=== PATIENT | female | born 1995 | race Caucasian/White ===

== ENCOUNTER 2020-10-14 20:04 | Emergency (ER) | payer SELFPAY ==
[~2020-10-14] VITALS: Ht 170.2 cm; Wt 62.3 kg
[2020-10-14] MEDS ORDERED: ONDANSETRON 4 MG/2 ML (SDV) Z0FRAN IVP STA (20:21)
[2020-10-14] MEDS ORDERED: NS IV 1000 ML 1,000 ML IV STA (20:21)
[2020-10-14] MEDS ORDERED: KETOROLAC 30 MG/ML VIAL IVP STA (20:21)
--- NOTE | 2020-10-14 20:23 | ED General ---
General Stated Complaint: LOWER RIGHT SIDE BACK PAIN Source of Information: Patient History of Present Illness Date Seen by Provider: October 14, 2020 Time Seen by Provider: 20:06 Initial Comments 25 yo female presents with pain to right flank and back for last 4-5 days but worse tonight. She has had kidney stones before and states this feels similar to that. She had a left over percocet she took yesterday for pain. she does not have a Urologist she follows with but recently saw a doctor and they are going to set her up with a Urology follow up. She denies fever/chills. She had diarrhea yesterday. She has had nausea but no vomiting. Pain with urination and right flank pain and feels the urine has been darker and had some blood. Last menstrual period 2 weeks ago and no chance of per patient since she has been celibate. Pain spikes to a 7 or 8 out of 10 at times and currently is around 5-6 out of 10. Timing/Duration: 4-5 Days Severity: Moderate Associated Systoms: No Chest Pain, No Cough, No Diaphoresis, No Fever/Chills, No Headaches, No Loss of Appetite, No Malaise; Nausea/Vomiting (nausea but no vomiting); No Rash, No Seizure, No Shortness of Air, No Syncope, No Weakness Allergies and Home Medications Allergies Coded Allergies: No Known Drug Allergies (Unverified , 10/14/20) Home Medications Ondansetron 4 Mg Tab.rapdis, 4 MG PO Q6H PRN for NAUSEA/VOMITING Prescribed by: OSEI Ho ENYART on 10/14/202108 Oxycodone HCl/Acetaminophen 1 Each Tablet, 1 EACH PO Q4H PRN for PAIN-SEVERE (8- 10) Prescribed by: OSEI Ho ENYART on 10/14/202109 Tamsulosin HCl 0.4 Mg Cap, 0.4 MG PO DAILY Prescribed by: OSEI Ho ENYART on 10/14/202108 Patient Home Medication List Home Medication List Reviewed: Yes Review of Systems Review of Systems Constitutional: No chills, No fever EENTM: no symptoms reported Respiratory: no symptoms reported Cardiovascular: no symptoms reported Gastrointestinal: see HPI Genitourinary: see HPI : No Musculoskeletal: back pain (right flank) Skin: no symptoms reported Psychiatric/Neurological: Anxiety Past Eratnxt-Cpmbzc-Kxydsk Hx Past Med/Social Hx: Reviewed Nursing Past Med/Soc Hx Past Medical History Surgeries: Yes (ureteral stent) Respiratory: No Cardiac: No Neurological: No Reproductive Disorders: No Genitourinary: Yes Kidney Stones (prior ureteral stent) Gastrointestinal: No Musculoskeletal: No Endocrine: No Psychosocial: Yes Anxiety Physical Exam Vital Signs Vital Signs - First Documented 10/14/20 20:10 Temp 36.4 Pulse 105 Resp 18 B/P (MAP) 114/75 (88) Pulse Ox 99 O2 Delivery Room Air Capillary Refill : Height, Weight, BMI Height: '" Weight: lbs. oz. 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 Norm as Tested Skin: Normal Color, Warm/Dry Progress/Results/Core Measures Suspected Sepsis SIRS Temperature: Pulse: Respiratory Rate: Laboratory Tests 10/14/20 20:30: White Blood Count 8.7 Blood Pressure / Mean: Laboratory Tests 10/14/20 20:30: Creatinine 0.56L, Platelet Count 331, Total Bilirubin 0.5 Results/Orders Lab Results Laboratory Tests Test 10/14/20 20:20 10/14/20 20:30 Range/Units Urine Color YELLOW Urine Clarity SLIGHTLY CLOUDY Urine pH 6.0 5-9 Urine Specific [place] >=1.030 1.016-1.022 Urine Protein NEGATIVE NEGATIVE Urine Glucose (UA) NEGATIVE NEGATIVE Urine Ketones 1+ H NEGATIVE Urine Nitrite NEGATIVE NEGATIVE Urine Bilirubin 1+ H NEGATIVE Urine Urobilinogen 1.0 < = 1.0 MG/DL Urine Leukocyte Esterase NEGATIVE NEGATIVE Urine RBC (Auto) TRACE-I NEGATIVE Urine RBC 10-25 H /HPF Urine WBC 2-5 /HPF Urine Squamous Epithelial Cells 10-25 H /HPF Urine Crystals PRESENT H /LPF Urine Calcium Oxalate Crystals FEW H /LPF Urine Bacteria LARGE H /HPF Urine Casts NONE /LPF Urine Mucus LARGE H /LPF Urine Culture Indicated YES White Blood Count 8.7 4.3-11.0 10^3/uL Red Blood Count 4.74 4.35-5.85 10^6/uL Hemoglobin 13.3 11.5-16.0 G/DL Hematocrit 39 35-52 % Mean Corpuscular Volume 83 80-99 FL Mean Corpuscular Hemoglobin 28 25-34 PG Mean Corpuscular Hemoglobin Concent 34 32-36 G/DL Red Cell Distribution Width 12.8 10.0-14.5 % Platelet Count 331 130-400 10^3/uL Mean Platelet Volume 10.4 7.4-10.4 FL Immature Granulocyte % (Auto) 0 % Neutrophils (%) (Auto) 56 42-75 % Lymphocytes (%) (Auto) 34 12-44 % Monocytes (%) (Auto) 8 0-12 % Eosinophils (%) (Auto) 1 0-10 % Basophils (%) (Auto) 1 0-10 % Neutrophils # (Auto) 4.9 1.8-7.8 X 10^3 Lymphocytes # (Auto) 2.9 1.0-4.0 X 10^3 Monocytes # (Auto) 0.7 0.0-1.0 X 10^3 Eosinophils # (Auto) 0.1 0.0-0.3 10^3/uL Basophils # (Auto) 0.1 0.0-0.1 10^3/uL Immature Granulocyte # (Auto) 0.0 0.0-0.1 10^3/uL Sodium Level 139 135-145 MMOL/L Potassium Level 4.2 3.6-5.0 MMOL/L Chloride Level 106 98-107 MMOL/L Carbon Dioxide Level 24 21-32 MMOL/L Anion Gap 9 5-14 MMOL/L Blood Urea Nitrogen 7 7-18 MG/DL Creatinine 0.56 L 0.60-1.30 MG/DL Estimat Glomerular Filtration Rate > 60 BUN/Creatinine Ratio 13 Glucose Level 89 70-105 MG/DL Calcium Level 9.5 8.5-10.1 MG/DL Corrected Calcium 9.2 8.5-10.1 MG/DL Total Bilirubin 0.5 0.1-1.0 MG/DL Aspartate Amino Transf (AST/SGOT) 12 5-34 U/L Alanine Aminotransferase (ALT/SGPT) 11 0-55 U/L Alkaline Phosphatase 79 40-136 U/L Total Protein 7.3 6.4-8.2 GM/DL Albumin 4.4 3.2-4.5 GM/DL My Orders Orders - OSEI COTA MD Ua Culture If Indicated (10/14/20 20:08) Urine Bedside (10/14/20 20:08) Comprehensive Metabolic Panel (10/14/20 20:21) Ed Iv/Invasive Line Start (10/14/20 20:21) Cbc With Automated Diff (10/14/20 20:21) Ct Abdomen/Pelvis Wo (10/14/20 20:21) Ns Iv 1000 Ml (Sodium Chloride 0.9%) (10/14/20 20:21) Ondansetron Injection (Zofran Injectio (10/14/20 20:21) Ketorolac Injection (Toradol Injection) (10/14/20 20:21) Urine Culture (10/14/20 20:20) Tamsulosin Capsule (Flomax Capsule) (10/14/20 20:58) Rx-Oxycodone/Apap 5-325 Mg (Rx-Percocet (10/14/20 21:00) Fentanyl Inj (Sublimaze Injection) (10/14/20 21:04) Vital Signs/I&O 10/14/20 10/14/20 20:10 21:23 Temp 36.4 Pulse 105 75 Resp 18 16 B/P (MAP) 114/75 (88) 98/56 Pulse Ox 99 98 O2 Delivery Room Air Room Air Capillary Refill : Progress Note #1: Progress Note check labs, UA to look for blood or infection. CT scan to evaluate for kidney stone or other process causing her pain. Progress Note #2: Progress Note labs stable without acute significant abnormality. UA shows blood and calcium oxalate crystals but no definite infections. Negative Nit, LE. CT shows minute non-obstructing stones on right. Pt reports she was still having severe pain despite Toradol. Will add on Fentanyl as she reports Morphine makes her sick. Flomax for renal colic. Send with take home of Percocet and scripts sent to pharmacy for pickup on Friday. Check with Urology and [facility] for continued problems/concerns. Given information for Dr. Carrero and [facility] clinic phone number. Diagnostic Imaging Diagonstic Imaging: CT Plain Films/CT/US/NM/MRI: abdomen, pelvis Comments NAME: GEOFFREY SALMON [facility] REC#: [id number] PT STATUS: REG ER : 1995 PHYSICIAN: OSEI COTA MD ADMIT DATE: 10/14/20/ER FS Draft Date of Exam:10/14/20 CT ABDOMEN/PELVIS WO PROCEDURE: CT abdomen and pelvis without contrast. TECHNIQUE: Multiple contiguous axial images were obtained through the abdomen and pelvis without the use of intravenous contrast. Auto Exposure Controls were utilized during the CT exam to meet ALARA standards for radiation dose reduction. INDICATION: Right flank pain. FINDINGS: The heart size is normal. The lung bases are clear. The liver is normal in size and without focal lesion. Gallbladder is unremarkable. There is no biliary ductal dilatation. Spleen is normal. The pancreas and adrenal glands are unremarkable. There are some minute nonobstructing right renal calculi. Left kidney is normal. Aorta is nonaneurysmal. There is no obvious obstructive uropathy. The bowel gas pattern is nonspecific. There is no free air. There is no ascites. There is no focal inflammatory change. There is no pelvic mass, adenopathy or free fluid. IMPRESSION: 1. Minute nonobstructing right renal calculi without evidence of obstructive uropathy. 2. Otherwise unremarkable noncontrast CT abdomen and pelvis. Dictated on workstation # [id number] Dict: 10/14/202045 Trans: 10/14/202051 [facility] [id number] Interpreted by: KORY OJEDA MD Electronically signed by: Departure Impression Primary Impression: Right flank pain Additional Impressions: Kidney stone on right side Renal colic on right side Disposition: 01 HOME, SELF-CARE Condition: Stable Departure-Patient Inst. Decision time for Depature: 21:05 Referrals: NO,LOCAL PHYSICIAN (PCP) Primary Care Physician JAMES CARRERO MD [facility] Patient Instructions: Kidney Stone, Adult ED, Kidney Stone Diet Add. Discharge Instructions: Stay well hydrated and drink plenty of water. Avoid carbonated and caffeinated drinks. Use the Percocet for severe pain. Take the Flomax to help relax the ureter to make it easier for kidney stones to pass. Follow up with your provider or urology for continued pain/symptoms. [facility] has medical providers you could see by calling [phone] to get established for care. Scripts Oxycodone HCl/Acetaminophen (Oxycodone-Acetaminophen 5-325) 1 Each Tablet 1 EACH PO Q4H PRN for PAIN-SEVERE (8-10) MDD 6 for 3 Days, #18 TAB 0 Refills Prov: OSEI COTA MD 10/14/20 Ondansetron (Ondansetron Odt) 4 Mg Tab.rapdis 4 MG PO Q6H PRN for NAUSEA/VOMITING for 5 Days, #20 TAB 0 Refills Prov: OSEI COTA MD 10/14/20 Tamsulosin HCl (Flomax) 0.4 Mg Cap 0.4 MG PO DAILY for renal colic for 7 Days, #7 CAP 0 Refills Prov: OSEI COTA MD 10/14/20 OSEI COTA MD October 14, 2020 20:23
[2020-10-14 20:37] LABS: COLOR,URINE YELLOW
[2020-10-14 20:38] LABS: BACTERIA,URINE LARGE /HPF; BILIRUBIN,URINE 1+ (NEGATIVE); CALCIUM OXALATE CRYSTALS,UR FEW /LPF; CLARITY,URINE SLIGHTLY CLOUDY; GLUCOSE, URINE (UA) NEGATIVE (NEGATIVE); KETONES,URINE 1+ (NEGATIVE); LEUKOCYTE ESTERASE ,URINE NEGATIVE (NEGATIVE); NITRITE,URINE NEGATIVE (NEGATIVE); PROTEIN,URINE NEGATIVE (NEGATIVE)
[2020-10-14 20:39] LABS: BASOPHILS # (AUTO) 0.1 10^3/uL (0.0-0.1); BASOPHILS % (AUTO) 1 % (0-10); EOSINOPHILS # (AUTO) 0.1 10^3/uL (0.0-0.3); EOSINOPHILS % (AUTO) 1 % (0-10); HEMATOCRIT 39 % (35-52); HEMOGLOBIN 13.3 G/DL (11.5-16.0); LYMPHOCYTES # (AUTO) 2.9 X 10^3 (1.0-4.0); LYMPHOCYTES % (AUTO) 34 % (12-44); MEAN CORPUSCULAR HEMOGLOBIN 28 PG (25-34); MEAN CORPUSCULAR HGB CONC 34 G/DL (32-36); MEAN CORPUSCULAR VOLUME 83 FL (80-99); MEAN PLATELET VOLUME 10.4 FL (7.4-10.4); MONOCYTES # (AUTO) 0.7 X 10^3 (0.0-1.0); MONOCYTES % (AUTO) 8 % (0-12); NEUTROPHILS # (AUTO) 4.9 X 10^3 (1.8-7.8); NEUTROPHILS % (AUTO) 56 % (42-75); PLATELET COUNT 331 10^3/uL (130-400); WHITE BLOOD COUNT 8.7 10^3/uL (4.3-11.0)
--- NOTE | 2020-10-14 20:53 | Diagnostic Imaging Report ---
PROCEDURE: CT abdomen and pelvis without contrast. TECHNIQUE: Multiple contiguous axial images were obtained through the abdomen and pelvis without the use of intravenous contrast. Auto Exposure Controls were utilized during the CT exam to meet ALARA standards for radiation dose reduction. INDICATION: Right flank pain. FINDINGS: The heart size is normal. The lung bases are clear. The liver is normal in size and without focal lesion. Gallbladder is unremarkable. There is no biliary ductal dilatation. Spleen is normal. The pancreas and adrenal glands are unremarkable. There are some minute nonobstructing right renal calculi. Left kidney is normal. Aorta is nonaneurysmal. There is no obvious obstructive uropathy. The bowel gas pattern is nonspecific. There is no free air. There is no ascites. There is no focal inflammatory change. There is no pelvic mass, adenopathy or free fluid. IMPRESSION: 1. Minute nonobstructing right renal calculi without evidence of obstructive uropathy. 2. Otherwise unremarkable noncontrast CT abdomen and pelvis. Dictated by: Dictated on workstation # [id number]
[2020-10-14] MEDS ORDERED: TAMSULOSIN 0.4 MG (FLOMAX) CAP PO STA (20:58)
[2020-10-14] MEDS ORDERED: morphine INJ 10 MG/ML 1ML (SYR OR VIAL) IVP STA (20:58)
[2020-10-14] MEDS ORDERED: RX-OXYCODONE/APAP 5-325 MG #4 TAB PK PO PRN (21:00)
[2020-10-14 21:03] LABS: ALANINE AMINOTRANSFERASE 11 U/L (0-55); ALBUMIN 4.4 GM/DL (3.2-4.5); ALKALINE PHOSPHATASE 79 U/L (40-136); BILIRUBIN,TOTAL 0.5 MG/DL (0.1-1.0); BUN/CREATININE RATIO 13; CALCIUM 9.5 MG/DL (8.5-10.1); CARBON DIOXIDE 24 MMOL/L (21-32); CHLORIDE 106 MMOL/L (98-107); CREATININE SERUM 0.56 MG/DL (0.60-1.30); GFR ESTIMATED > 60; GLUCOSE 89 MG/DL (70-105); POTASSIUM 4.2 MMOL/L (3.6-5.0); SODIUM 139 MMOL/L (135-145); TOTAL PROTEIN 7.3 GM/DL (6.4-8.2)
[2020-10-14] MEDS ORDERED: fentaNYL INJ 100 MCG/2 ML AMP IVP STA (21:04)
[2020-10-14] MEDS ORDERED: TMSL.4C PO (21:09)
[2020-10-14] MEDS ORDERED: ONDA4TAB11 PO (21:09)
[2020-10-14] MEDS ORDERED: OXYC1TAB11 PO (21:09)
[2020-10-14 21:23] VITALS: BP 98/56
== END 2020-10-14 21:23 | disposition home or self-care (01) ==
LOC: ER FS 20:08
DX: N20.0 Calculus of kidney (principal); Z96.0 Presence of urogenital implants
CPT/HCPCS: 36415; 74176; 80053; 81000; 84703; 85025; 87088

== ENCOUNTER 2020-11-20 19:08 | Emergency (ER) | payer SELFPAY ==
[~2020-11-20] VITALS: Ht 170.1 cm; Wt 61.0 kg
[~2020-11-20 19:08] MED LIST: ONDA4TAB11 PO; OXYC1TAB11 PO; TMSL.4C PO
[2020-11-20 20:02] LABS: CLARITY,URINE CLOUDY; COLOR,URINE YELLOW
[2020-11-20 20:03] LABS: BILIRUBIN,URINE NEGATIVE (NEGATIVE); GLUCOSE, URINE (UA) NEGATIVE (NEGATIVE); KETONES,URINE NEGATIVE (NEGATIVE); LEUKOCYTE ESTERASE ,URINE NEGATIVE (NEGATIVE); NITRITE,URINE NEGATIVE (NEGATIVE); PROTEIN,URINE NEGATIVE (NEGATIVE)
[2020-11-20 20:04] LABS: BACTERIA,URINE MODERATE /HPF
[2020-11-20] MEDS ORDERED: ONDANSETRON 4 MG (ZOFRAN) ORAL DISSOLVE TAB PO STA (20:20)
[2020-11-20] MEDS ORDERED: morphine INJ 10 MG/ML 1ML (SYR OR VIAL) IM STA (20:20)
[2020-11-20] MEDS ORDERED: RX-ONDANSETRON 4 MG ODT (ZOFRAN) PPK #4 PO PRN (20:30)
[2020-11-20] MEDS ORDERED: RX-OXYCODONE/APAP 5-325 MG #4 TAB PK PO PRN (20:30)
--- NOTE | 2020-11-20 21:10 | ED Back Pain ---
General Chief Complaint: Back Problems Stated Complaint: BACK/STOMACH PAIN | PAIN WHEN URINATING Nursing Triage Note: Patient states that she has a history of kidney stones. Patient started having right sided flank pain at approximately 15:00 today. Patient states she is pretty sure she has a kidney stone. Source of Information: Patient, Old Records History of Present Illness Date Seen by Provider: Nov 20, 2020 Time Seen by Provider: 19:18 Initial Comments 25 yo female presenting with recurrent complaint of right flank pain. she has history of renal colic and kidney stones. She states this pain came on suddenly this afternoon and feels similar to when she has had a kidney stone. She denies any burning or pain with urination. There is currently no blood in her urine. She has been seen here in the ED at the end of September for similar symptoms and at that time a CT scan showed some small stones in the right kidney. She had followed up with the clinic and establish with [facility] but has not seen urology. She states she has been avoiding pop and just trying to drink water. She denies anything different today to trigger the pain. There is been no trauma. She tried taking Tylenol for the pain without any significant provement. Timing/Duration: 4-6 Hours Severity: Severe Pain/Injury Location: Back (Right flank) Radiation: Other (Right flank) Method of Injury: Other (No injury but feels similar to when she has had kidney stones) Associated Symptoms: No muscle spasms, No fever, No weakness, No numbness in legs/feet, No tingling in legs/feet, No sensory/motor loss, No loss of bladder control, No loss of bowel control Allergies and Home Medications Allergies Coded Allergies: No Known Drug Allergies (Unverified , 10/14/20) Home Medications Ondansetron 4 Mg Tab.rapdis, 4 MG PO Q6H PRN for NAUSEA/VOMITING Prescribed by: OSEI REEDYART on 11/20/202116 Oxycodone HCl/Acetaminophen 1 Each Tablet, 1 EACH PO Q4H PRN for PAIN-SEVERE (8- 10) Prescribed by: OSEI العراقيRT on 11/20/202117 Tamsulosin HCl 0.4 Mg Cap, 0.4 MG PO DAILY Prescribed by: OSEI العراقيRT on 10/14/202108 Patient Home Medication List Home Medication List Reviewed: Yes Review of Systems Constitutional: No chills, No dizziness, No fever EENTM: no symptoms reported Respiratory: no symptoms reported Cardiovascular: no symptoms reported Gastrointestinal: see HPI Genitourinary: see HPI Musculoskeletal: see HPI Skin: no symptoms reported Psychiatric/Neurological: Anxiety Past Txzloyw-Pixtwf-Vaolrf Hx Patient Social History Tobacco Use?: No Smoking Status: Former Smoker Pt feels they are or have been: No Seasonal Allergies Seasonal Allergies: No Past Medical History Surgeries: Yes (ureteral stent) Respiratory: No Cardiac: No Neurological: No Reproductive Disorders: No Genitourinary: Yes Kidney Stones Gastrointestinal: No Musculoskeletal: No Endocrine: No HEENT: No Cancer: No Psychosocial: Yes Anxiety Integumentary: No Blood Disorders: No Physical Exam Vital Signs Vital Signs - First Documented 11/20/20 19:13 Temp 36.6 Pulse 99 Resp 16 B/P (MAP) 114/67 (83) Pulse Ox 100 O2 Delivery Room Air Capillary Refill : Less Than 3 Seconds Height, Weight, BMI Height: '" Weight: lbs. oz. kg; 21.00 BMI Method: General Appearance: WD/WN, Anxious, Moderate Distress HEENT: PERRL/EOMI, Pharynx Normal Neck: Full Range of Motion, Normal Inspection, Non Tender, Supple Cardiovascular: Regular Rate, Rhythm, Normal Peripheral Pulses Respiratory: Chest Non Tender, Lungs Clear, Normal Breath Sounds Gastrointestinal: Normal Bowel Sounds, No Pulsatile Mass, Soft; No Distended, No Guarding, No Rebound; Tenderness (Right flank wrapping around from posterior) Back: No CVA Tenderness, Other (Pain to the posterior right flank wrapping around to the front) Extremity: Normal Capillary Refill, Normal Inspection, No Pedal Edema Neurologic/Psychiatric: Alert, Oriented x3 Skin: Normal Color, Warm/Dry Progress/Results/Core Measures Results/Orders Lab Results Laboratory Tests Test 11/20/20 19:18 Range/Units Urine Color YELLOW Urine Clarity CLOUDY Urine pH 7.0 5-9 Urine Specific [place] 1.020 1.016-1.022 Urine Protein NEGATIVE NEGATIVE Urine Glucose (UA) NEGATIVE NEGATIVE Urine Ketones NEGATIVE NEGATIVE Urine Nitrite NEGATIVE NEGATIVE Urine Bilirubin NEGATIVE NEGATIVE Urine Urobilinogen 0.2 < = 1.0 MG/DL Urine Leukocyte Esterase NEGATIVE NEGATIVE Urine RBC (Auto) NEGATIVE NEGATIVE Urine RBC NONE /HPF Urine WBC 2-5 /HPF Urine Squamous Epithelial Cells 10-25 H /HPF Urine Crystals NONE /LPF Urine Bacteria MODERATE H /HPF Urine Casts NONE /LPF Urine Mucus MODERATE H /LPF Urine Culture Indicated NO My Orders Orders - OSEI COTA MD Ua Culture If Indicated (11/20/20 19:14) Urine Bedside (11/20/20 19:14) Morphine Injection (Morphine Injection (11/20/20 20:20) Ondansetron Oral Dissolve Tab (Zofran (11/20/20 20:20) Rx-Oxycodone/Apap 5-325 Mg (Rx-Percocet (11/20/20 20:30) Rx-Ondansetron Po (Rx-Zofran Po) (11/20/20 20:30) Medications Given in ED Current Medications Medications Dose Ordered Sig/Dougie Route Start Time Stop Time Status Last Admin Dose Admin Ondansetron HCl 4 mg Q6H PRN PO 11/20/20 20:30 11/20/20 21:33 DC 11/20/20 21:33 4 MG Oxycodone/ Acetaminophen 1 ea Q6H PRN PO 11/20/20 20:30 11/20/20 21:33 DC 11/20/20 21:33 1 EA Vital Signs/I&O 11/20/20 11/20/20 19:13 21:31 Temp 36.6 Pulse 99 87 Resp 16 18 B/P (MAP) 114/67 (83) 109/67 Pulse Ox 100 100 O2 Delivery Room Air Room Air Blood Pressure Mean: 83 Progress Progress Note : Progress Note Urine bedside test was negative. Urinalysis showed some bacteria but no leukocyte esterase or nitrates. No blood in urine. With her recent CT scan and now having recurrent pain will treat presumptively for kidney stone but not repeat the CT scan better through the radiation evaluation. If her symptoms are not improving or she has worsening problems then she may still need repeat imaging however for now we will try treating her pain and arranging follow-up with PCP and urology. Departure Impression Primary Impression: Right flank pain Additional Impression: Renal colic on right side Disposition: HOME, SELF-CARE Condition: Stable Departure-Patient Inst. Decision time for Depature: 21:15 Referrals: SARAHI BEATTY APRN (PCP/Family) Primary Care Physician Patient Instructions: Flank Pain ED, Kidney Stone Diet, Kidney Stone, Adult ED Add. Discharge Instructions: Strain your urine to help try and catch a stone. Follow up with clinic for your pain and to get appointment with Urology for recurrent kidney stones and flank pain Take the pain medicine to help with flank pain. Drink plenty of water to stay hydrated. All discharge instructions reviewed with patient and/or family. Voiced understanding. Scripts Oxycodone HCl/Acetaminophen (Oxycodone-Acetaminophen 5-325) 1 Each Tablet 1 EACH PO Q4H PRN for PAIN-SEVERE (8-10) MDD 6 for 3 Days, #18 TAB 0 Refills Prov: OSEI COTA MD 11/20/20 Ondansetron (Ondansetron Odt) 4 Mg Tab.rapdis 4 MG PO Q6H PRN for NAUSEA/VOMITING for 5 Days, #20 TAB 0 Refills Prov: OSEI COTA MD 11/20/20 OSEI COTA MD Nov 20, 2020 21:10
[2020-11-20] MEDS ORDERED: ONDA4TAB11 PO (21:17)
[2020-11-20] MEDS ORDERED: OXYC1TAB11 PO (21:17)
[2020-11-20 21:31] VITALS: BP 109/67
== END 2020-11-20 21:33 | disposition home or self-care (01) ==
LOC: EDUNIT# 19:08 → ER FS 19:10
DX: N23 Unspecified renal colic (principal); Z87.891 Personal history of nicotine dependence
CPT/HCPCS: 81000; 84703; 99284

== ENCOUNTER 2020-12-10 10:29 | Emergency (ER) | payer SELFPAY ==
[~2020-12-10] VITALS: Ht 172.7 cm; Wt 60.6 kg
[2020-12-10 10:33] VITALS: BP 104/59
--- NOTE | 2020-12-10 10:37 | ED EENT ---
History of Present Illness General Chief Complaint: Fever-Adult/Adol Stated Complaint: FEVER | PAIN FROM TONSIL REMOVAL | COUGH History of Present Illness Date Seen by Provider: Dec 10, 2020 Time Seen by Provider: 10:37 Initial Comments 25-year-old female presents with tonsil pain. Patient had her tonsils removed on 12/06/2020. Patient reports she was prescribed 7.5 /325 hydrocodone's and was "overusing them. Patient called her ENT on Friday and then what sounds like again today because of pain. Patient reports that she just took her last pain medication and she is here for pain management. Patient reports a fever right prior to arrival at home however no fever here. Patient has a mild occasional cough. No other systemic complaints Allergies and Home Medications Allergies Coded Allergies: No Known Drug Allergies (Unverified , 10/14/20) Home Medications Ondansetron 4 Mg Tab.rapdis, 4 MG PO Q6H PRN for NAUSEA/VOMITING Prescribed by: OSEI COTA on 11/20/202116 Oxycodone HCl/Acetaminophen 1 Each Tablet, 1 EACH PO Q4H PRN for PAIN-SEVERE (8- 10) Prescribed by: OSEI COTA on 11/20/202117 Tamsulosin HCl 0.4 Mg Cap, 0.4 MG PO DAILY Prescribed by: OSEI COTA on 10/14/202108 Patient Home Medication List Home Medication List Reviewed: Yes Review of Systems Review of Systems Constitutional: see HPI Eyes: No Symptoms Reported Ears: No Symptoms Reported Nose: no symptoms reported Mouth: see HPI Throat: see HPI Respiratory: cough (Mild occasional) Cardiovascular: no symptoms reported Neurological: No Symptoms Reported Hematologic/Lymphatic: No Symptoms Reported Immunological/Allergic: no symptoms reported Past Seiptpd-Qimrqz-Fwlnon Hx Seasonal Allergies Seasonal Allergies: No Past Medical History Surgeries: Yes (ureteral stent) Respiratory: No Cardiac: No Neurological: No Reproductive Disorders: No Genitourinary: Yes Kidney Stones Gastrointestinal: No Musculoskeletal: No Endocrine: No HEENT: No Cancer: No Psychosocial: Yes Anxiety Integumentary: No Blood Disorders: No Physical Exam Height, Weight, BMI Height: '" Weight: lbs. oz. kg; 21.00 BMI Method: General Appearance: WD/WN, no apparent distress Eyes: bilateral eye normal inspection Mouth/Throat: other (Good he healing eschar on bilateral tonsils with no signs of infection or other acute etiology) Cardiovascular: normal peripheral pulses, regular rate, rhythm Respiratory: lungs clear, normal breath sounds Gastrointestinal: non tender, soft Neurologic/Psychiatric: alert, normal mood/affect, oriented x 3 Skin: normal color, warm/dry Progress/Results/Core Measures Results/Orders My Orders Orders - QUENTIN COOPERR Rafaela DO Lidocaine 2% Viscous 15 Ml (Xylocaine Vi (12/10/20 10:45) Antacid Suspension (Mylanta Suspension (12/10/20 10:45) Medications Given in ED Current Medications Medications Dose Ordered Sig/Dougie Route Start Time Stop Time Status Last Admin Dose Admin Al Hydrox/Mg Hydrox/Simethicone 30 ml ONCE ONCE PO 12/10/20 10:45 12/10/20 10:46 DC 12/10/20 10:46 30 ML Lidocaine HCl 15 ml ONCE ONCE PO 12/10/20 10:45 12/10/20 10:46 DC 12/10/20 10:46 15 ML Progress Progress Note : Progress Note Patient's presentation is very concerning for opioid abuse. I did review her [facility] she has had multiple opioid refills recently. Patient received 40- 7.5 325 hydrocodone's on 12/06/2020. Patient will be given 5 hydrocodone 09/18/2024's along with viscous lidocaine. Patient was given viscous lidocaine here in the ER. She will need to follow-up with her primary care provider or ENT for any further pain management. Departure Impression Primary Impression: Post-tonsillectomy pain Disposition: 01 HOME, SELF-CARE Condition: Stable Departure-Patient Inst. Referrals: SARAHI BEATTY APRN (PCP/Family) Primary Care Physician Patient Instructions: Managing Pain After Surgery Add. Discharge Instructions: Follow-up with your primary care provider or ENT that performed the surgery tomorrow You may also gargle/swish and swallow with Maalox to help coat the tonsil bed for pain relief All discharge instructions reviewed with patient and/or family. Voiced understanding. Scripts Hydrocodone/Acetaminophen (Hydrocodone-Acetamin 5-325 mg) 1 Each Tablet 1 TAB PO Q8H PRN for PAIN-MODERATE (5-7), #5 TAB Prov: HALEY COOPER DO 12/10/20 Lidocaine HCl (Lidocaine HCl Viscous) 15 Ml Solution 15 ML MM Q8H for Pain, #120 EA Rinse and spit Prov: HALEY COOPER DO 12/10/20 HALEY COOPER DO Dec 10, 2020 10:37
[2020-12-10] MEDS ORDERED: LIDOCAINE 2% VISCOUS 15 ML UDC PO ONE (10:45)
[2020-12-10] MEDS ORDERED: ANTACID SUSP 30 ML UDC (MYLANTA) PO ONE (10:45)
[2020-12-10] MEDS ORDERED: LIDO20SO23 MM (11:01)
[2020-12-10] MEDS ORDERED: ACHD5005 PO (11:01)
== END 2020-12-10 11:10 | disposition home or self-care (01) ==
LOC: EDUNIT# 10:29 → ER FS 10:32
DX: G89.18 Other acute postprocedural pain (principal); Z90.89 Acquired absence of other organs
CPT/HCPCS: 99283

== ENCOUNTER 2021-02-26 16:54 | Emergency (ER) | payer SELFPAY ==
[~2021-02-26] VITALS: Ht 170 cm; Wt 60.0 kg
[~2021-02-26 16:54] MED LIST changes: +ACHD5005 PO; +LIDO20SO23 MM
[2021-02-26 17:14] LABS: CLARITY,URINE CLOUDY; COLOR,URINE YELLOW; GLUCOSE, URINE (UA) NEGATIVE (NEGATIVE); KETONES,URINE TRACE (NEGATIVE); LEUKOCYTE ESTERASE ,URINE TRACE (NEGATIVE); NITRITE,URINE NEGATIVE (NEGATIVE); PH,URINE 6.5 (5-9); PROTEIN,URINE TRACE (NEGATIVE)
--- NOTE | 2021-02-26 17:17 | ED GU-Female ---
General Chief Complaint: - Reproductive Stated Complaint: RT LOWER BACK PAIN Source: patient, old records History of Present Illness Date Seen by Provider: Feb 26, 2021 Time Seen by Provider: 17:00 Initial Comments 25-year-old female presenting with complaint of recurrent right flank pain. She states that this feels like her usual kidney stone pain. She had been seen last week on Friday and again on Friday for pain. Her prescription she got on February 23 was lost and she has not had any medicine since Friday. She has some nausea but no vomiting. She stated that they had checked her urine and lab and did not see any evidence of infection last week. She does have urinary frequency and urgency but denies any pain with urination or blood in her urine that she can see. She is waiting on a call from Dr. Carrero's office to be referred there from [facility]. Since she was continuing to have pain and the clinic would not replace her medicine or refill meds since just given script Friday she came to the ED for pain control. Timing/Duration: intermittent (since last Friday) Severity/Quality: severe, sharp, throbbing Location: right flank Radiation: right flank Prior Genitourinary Problems: similar symptoms (with kidney stones) Associated Symptoms: No abdominal pain, No diaphoresis, No dysuria, No fever/chills, No loss of bladder control; lower back pain; No lumps, No mass; nausea/vomiting (nausea but no vomiting); No nocturia, No swelling, No syncope; urinary frequency Allergies and Home Medications Allergies Coded Allergies: No Known Drug Allergies (Unverified , 10/14/20) Patient Home Medication List Home Medication List Reviewed: Yes Ciprofloxacin HCl (Ciprofloxacin HCl) 500 Mg Tablet, 500 MG PO BID Prescribed by: OSEI COTA on 02/26/21 1808 Hydrocodone/Acetaminophen (Hydrocodone-Acetamin 5-325 mg) 1 Each Tablet, 1 TAB PO Q8H PRN for PAIN-MODERATE (5-7) Prescribed by: HALEY COOPER on 12/10/20 1102 Hydrocodone/Acetaminophen (Hydrocodone-Acetamin 7.5-325) 1 Each Tablet, 1 EACH PO Q6H PRN for PAIN-SEVERE (8-10) Prescribed by: OSEI COTA on 02/26/21 1745 Lidocaine HCl (Lidocaine HCl Viscous) 15 Ml Solution, 15 ML MM Q8H Prescribed by: HALEY COOPER on 12/10/20 110 Ondansetron (Ondansetron Odt) 4 Mg Tab.rapdis, 4 MG PO Q6H PRN for NAUSEA/VOMITING Prescribed by: OSEI COTA on 11/20/202116 Ondansetron (Ondansetron Odt) 4 Mg Tab.rapdis, 4 MG PO Q6H PRN for NAUSEA/VOMITING Prescribed by: OSEI COTA on 02/26/21 174 Oxycodone HCl/Acetaminophen (Oxycodone-Acetaminophen 5-325) 1 Each Tablet, 1 EACH PO Q4H PRN for PAIN-SEVERE (8-10) Prescribed by: OSEI COTA on 11/20/202117 Tamsulosin HCl (Flomax) 0.4 Mg Cap, 0.4 MG PO DAILY Prescribed by: OSEI COTA on 10/14/202108 Review of Systems Review of Systems Constitutional: No chills, No fever EENTM: no symptoms reported Respiratory: no symptoms reported Cardiovascular: no symptoms reported Gastrointestinal: see HPI Genitourinary: see HPI Musculoskeletal: no symptoms reported Skin: no symptoms reported Psychiatric/Neurological: No Symptoms Reported Past Hmjggba-Azibdd-Vpdwxv Hx Seasonal Allergies Seasonal Allergies: No Past Medical History Surgeries: Yes (ureteral stent) Respiratory: No Cardiac: No Neurological: No Reproductive Disorders: No Genitourinary: Yes Kidney Stones Gastrointestinal: No Musculoskeletal: No Endocrine: No HEENT: No Cancer: No Psychosocial: Yes Anxiety Integumentary: No Blood Disorders: No Physical Exam Vital Signs Vital Signs - First Documented 02/26/21 17:00 Temp 36.5 Pulse 108 Resp 20 B/P (MAP) 102/78 (86) Pulse Ox 98 O2 Delivery Room Air Capillary Refill : Height, Weight, BMI Height: '" Weight: lbs. oz. kg; 20.00 BMI Method: General Appearance: WD/WN, no apparent distress HEENT: PERRL/EOMI, pharynx normal Neck: non-tender, full range of motion, supple, normal inspection Cardiovascular: normal peripheral pulses, regular rate, rhythm Respiratory: chest non-tender, lungs clear, normal breath sounds Gastrointestinal: normal bowel sounds, non tender, soft, no pulsatile mass Rectal: deferred Back: no CVA tenderness, other (tender to palpation along right posterior flank) Extremities: normal range of motion, non-tender, normal capillary refill Neurologic/Psychiatric: acetylene cutter II-XII nml as tested, alert, oriented x 3 Skin: normal color, warm/dry; No ecchymosis, No rash Progress/Results/Core Measures Suspected Sepsis SIRS Temperature: Pulse: Respiratory Rate: Blood Pressure / Mean: Results/Orders Lab Results Laboratory Tests Test 02/26/21 17:05 Range/Units Urine Color YELLOW Urine Clarity CLOUDY Urine pH 6.5 5-9 Urine Specific [place] 1.025 H 1.016-1.022 Urine Protein TRACE H NEGATIVE Urine Glucose (UA) NEGATIVE NEGATIVE Urine Ketones TRACE H NEGATIVE Urine Nitrite NEGATIVE NEGATIVE Urine Bilirubin 1+ H NEGATIVE Urine Urobilinogen 0.2 < = 1.0 MG/DL Urine Leukocyte Esterase TRACE H NEGATIVE Urine RBC (Auto) TRACE-I H NEGATIVE Urine RBC 2-5 H /HPF Urine WBC 25-50 H /HPF Urine Squamous Epithelial Cells >50 H /HPF Urine Crystals NONE /LPF Urine Bacteria LARGE H /HPF Urine Casts NONE /LPF Urine Mucus MODERATE H /LPF Urine Culture Indicated YES Urine Opiates Screen POSITIVE H NEGATIVE Urine Oxycodone Screen NEGATIVE NEGATIVE Urine Methadone Screen NEGATIVE NEGATIVE Urine Propoxyphene Screen NEGATIVE NEGATIVE Urine Barbiturates Screen NEGATIVE NEGATIVE Ur Tricyclic Antidepressants Screen NEGATIVE NEGATIVE Urine Phencyclidine Screen NEGATIVE NEGATIVE Urine Amphetamines Screen NEGATIVE NEGATIVE Urine Methamphetamines Screen NEGATIVE NEGATIVE Urine Benzodiazepines Screen NEGATIVE NEGATIVE Urine Cocaine Screen NEGATIVE NEGATIVE Urine Cannabinoids Screen POSITIVE H NEGATIVE My Orders Orders - OSEI COTA MD Urine Bedside (02/26/21 17:01) Ua Culture If Indicated (02/26/21 17:01) Morphine Injection (Morphine Injection (02/26/21 17:28) Ondansetron Oral Dissolve Tab (Zofran (02/26/21 17:28) Drug Screen Stat (Urine) (02/26/21 17:29) Urine Culture (02/26/21 17:05) Vital Signs/I&O 02/26/21 02/26/21 17:00 18:15 Temp 36.5 36.5 Pulse 108 108 Resp 20 20 B/P (MAP) 102/78 (86) 102/78 Pulse Ox 98 98 O2 Delivery Room Air Room Air Capillary Refill : Progress Note #1: Progress Note Pt states she did not want a CT scan or imaging as she would rather wait until she sees Urologist. She felt she needed something for pain and nausea. Will check urine and UDS. Since she just had prescription for narcotics on Friday and then again Friday will try prescribing a different medicine and have her call Dr. Carrero's office to see when she can be seen. Progress Note #2: Progress Note Pt did have bacteria on UA so a culture is being done. She also had several Epithelial cells in place as well so may be contaminant. Treat with Cipro as she will not be taking the Zofran routinely so they should not interact. Script for Hydrocodone at 7.5 mg strength every 6 hours prn severe pain. Follow up with Urology and [facility] for further refills of pain medicines Departure Impression Primary Impression: Right flank pain Additional Impressions: History of kidney stones Cystitis with hematuria Disposition: HOME, SELF-CARE Condition: Stable Departure-Patient Inst. Decision time for Depature: 18:07 Referrals: SAMANTHA BEATTY APRN (PCP) Primary Care Physician JAMES CARRERO MD Patient Instructions: Flank Pain ED, Kidney Stone Diet, Kidney Stone, Adult ED Add. Discharge Instructions: Follow up with Urology and call Dr. Carrero's office to see about when they can see you. Stay well hydrated and drink plenty of water. Use the nausea medicine and pain medicine to help control your symptoms so they are tolerable. Future pain medicine prescriptions will need to come from Urology or [facility] clinic All discharge instructions reviewed with patient and/or family. Voiced understanding. Scripts Ciprofloxacin HCl (Ciprofloxacin HCl) 500 Mg Tablet 500 MG PO BID for UTI for 7 Days, #14 TAB 0 Refills Prov: OSEI COTA MD 02/26/21 Ondansetron (Ondansetron Odt) 4 Mg Tab.rapdis 4 MG PO Q6H PRN for NAUSEA/VOMITING for 5 Days, #20 TAB 0 Refills Prov: OSEI COTA MD 02/26/21 Hydrocodone/Acetaminophen (Hydrocodone-Acetamin 7.5-325) 1 Each Tablet 1 EACH PO Q6H PRN for PAIN-SEVERE (8-10) for 5 Days, #20 TAB 0 Refills Prov: OSEI COTA MD 02/26/21 OSEI COTA MD Feb 26, 2021 17:17
[2021-02-26] MEDS ORDERED: morphine INJ 10 MG/ML 1ML (SYR OR VIAL) IM STA (17:28)
[2021-02-26] MEDS ORDERED: ONDANSETRON 4 MG (ZOFRAN) ORAL DISSOLVE TAB PO STA (17:28)
[2021-02-26] MEDS ORDERED: HYDR-3817 PO (17:40)
[2021-02-26] MEDS ORDERED: ONDA4TAB11 PO (17:40)
[2021-02-26 17:51] LABS: BACTERIA,URINE LARGE /HPF; BILIRUBIN,URINE 1+ (NEGATIVE); WBC,URINE 25-50 /HPF
[2021-02-26 17:53] LABS: SQUAMOUS EPITHELIAL CELL,UR >50 /HPF
[2021-02-26 17:58] LABS: AMPHETAMINE SCREEN, URINE NEGATIVE (NEGATIVE); BARBITURATE SCREEN URINE NEGATIVE (NEGATIVE); BENZODIAZEPINES SCREEN URINE NEGATIVE (NEGATIVE); CANNABINOID SCREEN, URINE POSITIVE (NEGATIVE); COCAINE SCREEN URINE NEGATIVE (NEGATIVE); METHADONE STAT NEGATIVE (NEGATIVE); METHAMPHETAMINE SCREEN URINE S NEGATIVE (NEGATIVE); OPIATE SCREEN URINE POSITIVE (NEGATIVE); OXYCODONE STAT NEGATIVE (NEGATIVE); PROPOXYPHENE STAT NEGATIVE (NEGATIVE); TRICYCLIC ANTIDEPRESSANTS SCRE NEGATIVE (NEGATIVE)
[2021-02-26] MEDS ORDERED: CIPR500T5 PO (18:08)
[2021-02-26 18:15] VITALS: BP 102/78
== END 2021-02-26 18:16 | disposition home or self-care (01) ==
LOC: EDUNIT# 16:54 → ER FS 16:55
DX: N30.91 Cystitis, unspecified with hematuria (principal)
CPT/HCPCS: 80306; 81000; 87088; 99284

== ENCOUNTER 2021-03-05 15:56 | Outpatient (RCR) | payer MEDICAID ==
[2021-03-05 16:51] LABS: POTASSIUM 4.2 MMOL/L (3.6-5.0)
[2021-03-05 16:52] LABS: CALCIUM 9.2 MG/DL (8.5-10.1)
[2021-03-05 16:56] LABS: CREATININE SERUM 0.7 MG/DL (0.60-1.30); PHOSPHORUS 4.2 MG/DL (2.3-4.7)
[2021-03-05 16:59] LABS: URIC ACID 3.1 MG/DL (2.6-7.2)
== END 2021-05-18 | disposition home or self-care (01) ==
LOC: LAB 15:56 → EDSTATUS 16:49
PROVIDERS: ATTEND Urology
DX: N20.0 Calculus of kidney (principal)
CPT/HCPCS: 36415; 80048; 83970; 84100; 84550

== ENCOUNTER → 2021-03-05 | Outpatient (CLI) | payer SELFPAY ==
[~2021-03-05] MED LIST changes: +CIPR500T5 PO; +HYDR-3817 PO
--- NOTE | 2021-03-05 15:03 | Diagnostic Imaging Report ---
INDICATION: Right kidney stone A single view of the abdomen shows a normal bowel gas pattern. There is a punctate calcification projected over the lower pole of the right kidney which corresponds with the CT from 10/14/2020. No ureteral stones are evident. There is no bony abnormality. IMPRESSION: Small right renal calculus. Dictated by: Dictated on workstation # [id number]
== END ==
LOC: RAD 14:02
PROVIDERS: ATTEND Urology
DX: N20.0 Calculus of kidney (principal)
CPT/HCPCS: 74018

== ENCOUNTER 2022-03-03 18:15 | Emergency (ER) | payer MEDICAID ==
[~2022-03-03] VITALS: Ht 170.1 cm; Wt 63.6 kg
--- NOTE | 2022-03-03 18:34 | ED Back Pain ---
General Chief Complaint: Back Problems Stated Complaint: ABD/BACK PAIN History of Present Illness Date Seen by Provider: Mar 03, 2022 Time Seen by Provider: 18:29 Initial Comments 26-year-old female with complaints of right-sided flank pain. Is been going on for a week got really bad today. She is been taking ketorolac for this. But that is not helping as much anymore. She does have a history of kidney stones and she thinks this is it. Has not noticed any blood in the urine. Has had nausea. No fever or chills. Allergies and Home Medications Allergies Coded Allergies: No Known Drug Allergies (Unverified , 10/14/20) Patient Home Medication List Home Medication List Reviewed: Yes Ciprofloxacin HCl (Ciprofloxacin HCl) 500 Mg Tablet, 500 MG PO BID Prescribed by: OSEI COTA on 02/26/21 180 Hydrocodone/Acetaminophen (Hydrocodone-Acetamin 5-325 mg) 1 Each Tablet, 1 TAB PO Q8H PRN for PAIN-MODERATE (5-7) Prescribed by: HALEY COOPER on 12/10/20 110 Hydrocodone/Acetaminophen (Hydrocodone-Acetamin 7.5-325) 1 Each Tablet, 1 EACH PO Q6H PRN for PAIN-SEVERE (8-10) Prescribed by: OSEI COTA on 02/26/21 174 Lidocaine HCl (Lidocaine HCl Viscous) 15 Ml Solution, 15 ML MM Q8H Prescribed by: HALEY COOPER on 12/10/20 110 Ondansetron (Ondansetron Odt) 4 Mg Tab.rapdis, 4 MG PO Q6H PRN for NAUSEA/VOMITING Prescribed by: OSEI COTA on 11/20/202116 Ondansetron (Ondansetron Odt) 4 Mg Tab.rapdis, 4 MG PO Q6H PRN for NAUSEA/VOMITING Prescribed by: OSEI COTA on 02/26/21 174 Oxycodone HCl/Acetaminophen (Oxycodone-Acetaminophen 5-325) 1 Each Tablet, 1 EACH PO Q4H PRN for PAIN-SEVERE (8-10) Prescribed by: OSEI COTA on 11/20/20 211 Sulfamethoxazole/Trimethoprim (Sulfamethoxazole-Tmp Ss Tablet) 400 Mg-80 Mg Tablet, 1 EACH PO Q12H Prescribed by: Claude Mason on 03/03/221939 Tamsulosin HCl (Flomax) 0.4 Mg Cap, 0.4 MG PO DAILY Prescribed by: OSEI COTA on 10/14/202108 Review of Systems Constitutional: see HPI Past Burmjpn-Krpbfe-Gqutrd Hx Patient Social History Tobacco Use?: No Seasonal Allergies Seasonal Allergies: No Past Medical History Surgeries: Yes (ureteral stent) Respiratory: No Cardiac: No Neurological: No Reproductive Disorders: No Genitourinary: Yes Kidney Stones Gastrointestinal: No Musculoskeletal: No Endocrine: No HEENT: No Cancer: No Psychosocial: Yes Anxiety Integumentary: No Blood Disorders: No Physical Exam Vital Signs Vital Signs - First Documented 03/03/22 18:20 Temp 36.2 Pulse 105 Resp 14 B/P (MAP) 110/59 (76) Pulse Ox 100 O2 Delivery Room Air Capillary Refill : Height, Weight, BMI Height: '" Weight: lbs. oz. kg; 20.00 BMI Method: General Appearance: No Apparent Distress, WD/WN HEENT: PERRL/EOMI Neck: Supple Back: CVA Tenderness (L), CVA Tenderness (R) Neurologic/Psychiatric: Alert, Oriented x3 Skin: Normal Color, Warm/Dry Progress/Results/Core Measures Results/Orders Lab Results Laboratory Tests Test 03/03/22 18:20 03/03/22 18:30 Range/Units Urine Color YELLOW Urine Clarity CLOUDY Urine pH 6.0 5-9 Urine Specific [place] 1.025 H 1.016-1.022 Urine Protein NEGATIVE NEGATIVE Urine Glucose (UA) NEGATIVE NEGATIVE Urine Ketones NEGATIVE NEGATIVE Urine Nitrite NEGATIVE NEGATIVE Urine Bilirubin NEGATIVE NEGATIVE Urine Urobilinogen 0.2 < = 1.0 MG/DL Urine Leukocyte Esterase 1+ H NEGATIVE Urine RBC (Auto) NEGATIVE NEGATIVE Urine RBC 5-10 H /HPF Urine WBC 50-100 H /HPF Urine Squamous Epithelial Cells >50 H /HPF Urine Crystals NONE /LPF Urine Bacteria LARGE H /HPF Urine Casts NONE /LPF Urine Mucus NEGATIVE /LPF Urine Culture Indicated NO White Blood Count 8.8 4.3-11.0 10^3/uL Red Blood Count 4.02 3.80-5.11 10^6/uL Hemoglobin 12.6 11.5-16.0 g/dL Hematocrit 38 35-52 % Mean Corpuscular Volume 94 80-99 fL Mean Corpuscular Hemoglobin 31 25-34 pg Mean Corpuscular Hemoglobin Concent 33 32-36 g/dL Red Cell Distribution Width 11.6 10.0-14.5 % Platelet Count 395 130-400 10^3/uL Mean Platelet Volume 9.2 9.0-12.2 fL Immature Granulocyte % (Auto) 0 % Neutrophils (%) (Auto) 56 42-75 % Lymphocytes (%) (Auto) 36 12-44 % Monocytes (%) (Auto) 6 0-12 % Eosinophils (%) (Auto) 0 0-10 % Basophils (%) (Auto) 1 0-10 % Neutrophils # (Auto) 4.9 1.8-7.8 10^3/uL Lymphocytes # (Auto) 3.1 1.0-4.0 10^3/uL Monocytes # (Auto) 0.6 0.0-1.0 10^3/uL Eosinophils # (Auto) 0.0 0.0-0.3 10^3/uL Basophils # (Auto) 0.1 0.0-0.1 10^3/uL Immature Granulocyte # (Auto) 0.0 0.0-0.1 10^3/uL Neutrophils % (Manual) 64 % Lymphocytes % (Manual) 30 % Monocytes % (Manual) 6 % Sodium Level 139 135-145 MMOL/L Potassium Level 4.0 3.6-5.0 MMOL/L Chloride Level 101 98-107 MMOL/L Carbon Dioxide Level 25 21-32 MMOL/L Anion Gap 13 5-14 MMOL/L Blood Urea Nitrogen 9 7-18 MG/DL Creatinine 0.57 L 0.60-1.30 MG/DL Estimat Glomerular Filtration Rate 128 BUN/Creatinine Ratio 16 Glucose Level 94 70-105 MG/DL Calcium Level 9.3 8.5-10.1 MG/DL Corrected Calcium 8.5-10.1 MG/DL Total Bilirubin 0.2 0.1-1.0 MG/DL Aspartate Amino Transf (AST/SGOT) 12 5-34 U/L Alanine Aminotransferase (ALT/SGPT) 12 0-55 U/L Alkaline Phosphatase 76 40-136 U/L Total Protein 7.8 6.4-8.2 GM/DL Albumin 5.1 H 3.2-4.5 GM/DL My Orders Orders - CLAUDE MASON MD Cbc And Manual Diff (03/03/22 18:35) Comprehensive Metabolic Panel (03/03/22 18:35) Urinalysis (03/03/22 18:35) Ct Abd/Pelvis Wo(Kidney Stone) (03/03/22 18:35) Urine Bedside (03/03/22 18:45) Sulfamethoxazole/Trimet Ds Tab (Bactrim (03/03/22 19:45) Medications Given in ED Current Medications Medications Dose Ordered Sig/Dougie Route Start Time Stop Time Status Last Admin Dose Admin Trimethoprim/ Sulfamethoxazole 1 ea ONCE ONCE PO 03/03/22 19:45 03/03/22 19:46 DC 03/03/22 19:45 1 EA Vital Signs/I&O 03/03/22 03/03/22 18:20 19:47 Temp 36.2 36.2 Pulse 105 105 Resp 14 14 B/P (MAP) 110/59 (76) 110/59 Pulse Ox 100 100 O2 Delivery Room Air Room Air Progress Progress Note : Time: 19:36 Progress Note Discussed results of CT with patient. Will treat with antibiotic. Will give 1 Bactrim night send a prescription with her. Encourage patient to get appointment for primary care Diagnostic Imaging Diagonstic Imaging: CT Plain Films/CT/US/NM/MRI: abdomen Comments Discussed results of CT. Shows nonobstructing stones in the right renal collecting system. No hydronephrosis. CT Results/Progress Notes [facility], [place] NAME: GEOFFREY SALMON [facility] REC#: [id number] PT STATUS: REG ER : 1995 PHYSICIAN: CLAUDE MASON MD ADMIT DATE: 03/03/22/ER FS Signed Date of Exam:03/03/22 CT ABD/PELVIS WO(KIDNEY STONE) EXAMINATION: CT abdomen and pelvis without contrast. TECHNIQUE: Multiple contiguous axial images were obtained through the abdomen and pelvis without the use of intravenous contrast. All CT scans use one or more of the following dose optimizing techniques: automated exposure control, MA and/or KvP adjustment based on patient size and exam type or iterative reconstruction. HISTORY: Right flank pain. COMPARISON: 10/14/2020. FINDINGS: Limited views of the lower thorax are unremarkable. The liver is normal without focal lesion. There is no biliary ductal dilation. Gallbladder is normal. Pancreas is normal. Spleen is normal. Adrenal glands are normal. There are nonobstructing 2 mm and smaller stones in the right kidney. No ureteral stone is seen. No suspicious renal lesion. Calcifications in the pelvis which may represent phleboliths. There is no hydronephrosis. Urinary bladder is normal. Bowel is normal in caliber without obstruction or inflammation. No free fluid or air. No abdominal or pelvic lymphadenopathy. Aorta is normal in caliber without aneurysm. There is no suspicious osseous lesion. IMPRESSION: Nonobstructing right renal stones. There are several calcifications in the right pelvis that appear to represent phleboliths. No definite ureteral stone. Dictated by: Dictated on workstation # [id number] Dict: 03/03/221911 Trans: 03/03/221940 [id number] Interpreted by: TOY BROOKS MD Electronically signed by: TOY BROOKS MD 03/03/221940 Departure Impression Primary Impression: History of kidney stones Additional Impression: Acute urinary tract infection Disposition: 01 HOME, SELF-CARE Condition: Stable Departure-Patient Inst. Decision time for Depature: 19:36 Referrals: NO,LOCAL PHYSICIAN (PCP/Family) Primary Care Physician Patient Instructions: Urinary Tract Infection, Adult (DC) Add. Discharge Instructions: Antibiotic given. Will recommend you take the rest of the antibiotics that were prescribed. Follow-up if symptoms do not resolve. All discharge instructions reviewed with patient and/or family. Voiced understanding. Scripts Sulfamethoxazole/Trimethoprim (Sulfamethoxazole-Tmp Ss Tablet) 400 Mg-80 Mg Tablet 1 EACH PO Q12H for 3 Days, #6 TAB Prov: CLAUDE MASON MD 03/03/22 CLAUDE MASON MD Mar 03, 2022 18:34
[2022-03-03 18:40] LABS: BASOPHILS # (AUTO) 0.1 10^3/uL (0.0-0.1); BASOPHILS % (AUTO) 1 % (0-10); EOSINOPHILS % (AUTO) 0 % (0-10); HEMATOCRIT 38 % (35-52); HEMOGLOBIN 12.6 g/dL (11.5-16.0); LYMPHOCYTES # (AUTO) 3.1 10^3/uL (1.0-4.0); LYMPHOCYTES % (AUTO) 36 % (12-44); MEAN CORPUSCULAR HEMOGLOBIN 31 pg (25-34); MEAN CORPUSCULAR HGB CONC 33 g/dL (32-36); MEAN CORPUSCULAR VOLUME 94 fL (80-99); MEAN PLATELET VOLUME 9.2 fL (9.0-12.2); MONOCYTES # (AUTO) 0.6 10^3/uL (0.0-1.0); MONOCYTES % (AUTO) 6 % (0-12); NEUTROPHILS # (AUTO) 4.9 10^3/uL (1.8-7.8); NEUTROPHILS % (AUTO) 56 % (42-75); PLATELET COUNT 395 10^3/uL (130-400); WHITE BLOOD COUNT 8.8 10^3/uL (4.3-11.0)
[2022-03-03 18:41] LABS: BILIRUBIN,URINE NEGATIVE (NEGATIVE); COLOR,URINE YELLOW; GLUCOSE, URINE (UA) NEGATIVE (NEGATIVE); KETONES,URINE NEGATIVE (NEGATIVE); LEUKOCYTE ESTERASE ,URINE 1+ (NEGATIVE); NITRITE,URINE NEGATIVE (NEGATIVE); PROTEIN,URINE NEGATIVE (NEGATIVE)
[2022-03-03 18:43] LABS: BACTERIA,URINE LARGE /HPF; CLARITY,URINE CLOUDY; SQUAMOUS EPITHELIAL CELL,UR >50 /HPF; WBC,URINE 50-100 /HPF
[2022-03-03 18:51] LABS: ALANINE AMINOTRANSFERASE 12 U/L (0-55); ALBUMIN 5.1 GM/DL (3.2-4.5); ALKALINE PHOSPHATASE 76 U/L (40-136); BILIRUBIN,TOTAL 0.2 MG/DL (0.1-1.0); BUN/CREATININE RATIO 16; CALCIUM 9.3 MG/DL (8.5-10.1); CARBON DIOXIDE 25 MMOL/L (21-32); CHLORIDE 101 MMOL/L (98-107); CREATININE SERUM 0.57 MG/DL (0.60-1.30); GFR ESTIMATED 128; GLUCOSE 94 MG/DL (70-105); SODIUM 139 MMOL/L (135-145); TOTAL PROTEIN 7.8 GM/DL (6.4-8.2)
[2022-03-03 18:55] LABS: LYMPHOCYTES % (MANUAL) 30 %; MONOCYTES % (MANUAL) 6 %; NEUTROPHILS % (MANUAL) 64 %
--- NOTE | 2022-03-03 19:22 | Diagnostic Imaging Report ---
EXAMINATION: CT abdomen and pelvis without contrast. TECHNIQUE: Multiple contiguous axial images were obtained through the abdomen and pelvis without the use of intravenous contrast. All CT scans use one or more of the following dose optimizing techniques: automated exposure control, MA and/or KvP adjustment based on patient size and exam type or iterative reconstruction. HISTORY: Right flank pain. COMPARISON: 10/14/2020. FINDINGS: Limited views of the lower thorax are unremarkable. The liver is normal without focal lesion. There is no biliary ductal dilation. Gallbladder is normal. Pancreas is normal. Spleen is normal. Adrenal glands are normal. There are nonobstructing 2 mm and smaller stones in the right kidney. No ureteral stone is seen. No suspicious renal lesion. Calcifications in the pelvis which may represent phleboliths. There is no hydronephrosis. Urinary bladder is normal. Bowel is normal in caliber without obstruction or inflammation. No free fluid or air. No abdominal or pelvic lymphadenopathy. Aorta is normal in caliber without aneurysm. There is no suspicious osseous lesion. IMPRESSION: Nonobstructing right renal stones. There are several calcifications in the right pelvis that appear to represent phleboliths. No definite ureteral stone. Dictated by: Dictated on workstation # [id number]
[2022-03-03] MEDS ORDERED: SULF-11 PO (19:40)
[2022-03-03] MEDS ORDERED: TRIM/SULFAMETH 160/800 (SEPTRA DS) TAB PO ONE (19:45)
[2022-03-03 19:47] VITALS: BP 110/59
== END 2022-03-03 19:45 | disposition home or self-care (01) ==
LOC: EDUNIT# 18:15 → ER FS 18:17
DX: N39.0 Urinary tract infection, site not specified (principal); Z87.442 Personal history of urinary calculi; Z96.0 Presence of urogenital implants; Z28.310 Unvaccinated for COVID-19
CPT/HCPCS: 36415; 74176; 80053; 81000; 84703; 85007; 85027

== ENCOUNTER 2022-03-06 13:36 | Emergency (ER) | payer MEDICAID ==
[~2022-03-06] VITALS: Ht 170.1 cm; Wt 62.3 kg
[~2022-03-06 13:36] MED LIST changes: +SULF-11 PO
[2022-03-06 13:38] VITALS: BP 100/68
--- NOTE | 2022-03-06 14:11 | ED GU-Female ---
General Chief Complaint: - Reproductive Stated Complaint: HEMATURIA; RT FLANK PAIN Nursing Triage Note: Patient c/o Rt. flank pain with hematuria. Pt. states she was seen here at this facility x 2 days ago and states she was Dx. with a kidney stone. Pt. is unable to state what size of kidney stone she had. Pt. states she has a Hx. of kidney stones and states she has had to have surgery in the past to have them removed. Pt. states she started having blood in her urine last night. Source: patient Exam Limitations: no limitations (EZEQUIEL SANCHEZ) History of Present Illness Date Seen by Provider: Mar 06, 2022 Time Seen by Provider: 13:50 Initial Comments This 26 y/o presents with reported hematuria and right-sided flank pain. Patient states she was seen on 03/03/2022 in the ER with similar symptoms. Patient states she was treated for a UTI with Bactrim. Patient states she has not picked up her prescription yet but intends to today and has been taking Bactrim that she had at home. Patient states her pain is worsening, and this morning when she went to urinate she noticed her urine had a pink tinge to it. Patient denies current vaginal bleeding. Patient states her pain is located in her RLQ and radiates to her right flank. Patient states the pain is sharp/stabbing. Patient states she has been taking toradol and tylenol at home with little relief. Patient states she has a history of kidney stones and has previously seen Dr. Crarero. Patient also admits to a history of opioid dependence and states she has not taken an opioid in the past year. Patient denies possibility of being . Patient denies fever, chills, chest pain, SOA, vomiting, diarrhea, or constipation. Her last BM was two days ago and was soft. Patient reports nausea. Timing/Duration: changing over time Severity/Quality: moderate, sharp, stabbing Location: RLQ, right flank Prior Genitourinary Problems: similar symptoms Sexual [place] History: not active Modifying Factors: Improves With Analgesics Associated Symptoms: nausea/vomiting (EZEQUIEL SANCHEZ) Initial Comments CT performed yesterday demonstrated kidney stones but no ureteral stones or ureteral obstruction. Pain continues today. She does not feel constipated but has not had a BM in a couple of days. She denies as she is not sexually active and had LMP within the past 2 weeks. She denies fever or chills. She discloses history of opioid dependence and wishes to be cautious about pain management. (STEFFI COHEN MD) Allergies and Home Medications Allergies Coded Allergies: No Known Drug Allergies (Unverified , 10/14/20) Patient Home Medication List Home Medication List Reviewed: Yes (EZEQUIEL SANCHEZ) Oxycodone HCl/Acetaminophen (Oxycodone-Acetaminophen 5-325) 5 Mg-325 Mg Tablet, 1 EACH PO Q4H PRN for PAIN-SEVERE (8-10) Prescribed by: OSEI COTA on 03/07/22 1249 Sulfamethoxazole/Trimethoprim (Sulfamethoxazole-Tmp Ss Tablet) 400 Mg-80 Mg Tablet, 1 EACH PO Q12H Prescribed by: Claude Hendricks on 03/03/22 1940 Discontinued Medications Ciprofloxacin HCl (Ciprofloxacin HCl) 500 Mg Tablet, 500 MG PO BID Prescribed by: OSEI COTA on 02/26/21 1808 Hydrocodone/Acetaminophen (Hydrocodone-Acetamin 5-325 mg) 1 Each Tablet, 1 TAB PO Q8H PRN for PAIN-MODERATE (5-7) Prescribed by: HALEY COOPER on 12/10/20 1102 Hydrocodone/Acetaminophen (Hydrocodone-Acetamin 7.5-325) 1 Each Tablet, 1 EACH PO Q6H PRN for PAIN-SEVERE (8-10) Prescribed by: OSEI COTA on 02/26/21 1745 Lidocaine HCl (Lidocaine HCl Viscous) 15 Ml Solution, 15 ML MM Q8H Prescribed by: HALEY COOPER on 12/10/20 1101 Ondansetron (Ondansetron Odt) 4 Mg Tab.rapdis, 4 MG PO Q6H PRN for NAUSEA/VOMITING Prescribed by: OSEI COTA on 11/20/20 2117 Ondansetron (Ondansetron Odt) 4 Mg Tab.rapdis, 4 MG PO Q6H PRN for NAUSEA/VOMITING Prescribed by: OSEI COTA on 02/26/21 1740 Oxycodone HCl/Acetaminophen (Oxycodone-Acetaminophen 5-325) 1 Each Tablet, 1 EACH PO Q4H PRN for PAIN-SEVERE (8-10) Prescribed by: OSEI COTA on 11/20/202117 Tamsulosin HCl (Flomax) 0.4 Mg Cap, 0.4 MG PO DAILY Prescribed by: OSEI العراقيRT on 10/14/202108 Review of Systems Review of Systems Constitutional: no symptoms reported EENTM: no symptoms reported Respiratory: no symptoms reported Cardiovascular: no symptoms reported Gastrointestinal: RLQ, nausea Genitourinary: flank pain (right), hematuria : No Musculoskeletal: no symptoms reported Skin: no symptoms reported Endocrine: No Symptoms Reported Hematologic/Lymphatic: No Symptoms Reported (EZEQUIEL SANCHEZ) All Other Systemes Reviewed Negative Unless Noted: Yes (EZEQUIEL SANCHEZ) Past Xfbnylv-Ygbwfm-Lksfuj Hx Patient Social History Tobacco Use?: No Smoking Status: Former Smoker Use of E-Cig and/or Vaping dev: Yes E-Cig or Vaping type used: Nicotine Substance use?: No Alcohol Use?: No (EZEQUIEL SANCHEZ) Immunizations Up To Date Influenza Vaccine Up-to-Date: No; Not Current First/Initial COVID19 Vaccinat: Not currently vaccinated (EZEQUIEL SANCHEZ) Seasonal Allergies Seasonal Allergies: No (EZEQUIEL SANCHEZ) Past Medical History Surgery/Hospitalization HX: Anxiety; Depression; Kidney Stones; Surgeries: Yes (ureteral stent) Respiratory: No Cardiac: No Neurological: No Last Menstrual Period: Feb 21, 2020 Reproductive Disorders: No Genitourinary: Yes Kidney Stones Gastrointestinal: No Musculoskeletal: No Endocrine: No HEENT: No Cancer: No Psychosocial: Yes Anxiety Integumentary: No Blood Disorders: No (EZEQUIEL SANCHEZ) Physical Exam Vital Signs Vital Signs - First Documented 03/06/22 13:38 Temp 36.5 Pulse 88 Resp 16 B/P (MAP) 100/68 (79) Pulse Ox 100 O2 Delivery Room Air (STEFFI COHEN MD) Vital Signs Capillary Refill : (EZEQUIEL SANCHEZ) Height, Weight, BMI Height: '" Weight: lbs. oz. kg; 21.00 BMI Method: General Appearance: WD/WN, no apparent distress HEENT: PERRL/EOMI Cardiovascular: regular rate, rhythm, no murmur Respiratory: lungs clear, normal breath sounds, no respiratory distress, no accessory muscle use Gastrointestinal: normal bowel sounds, tenderness (right flank tenderness and RLQ tenderness with palpation. Right flank pain with light percussion) Back: CVA tenderness (R) Neurologic/Psychiatric: alert, oriented x 3 Skin: normal color, warm/dry (EZEQUIEL SANCHEZ) Progress/Results/Core Measures Suspected Sepsis SIRS Temperature: Pulse: 88 Respiratory Rate: 16 Blood Pressure 100 /68 Mean: 79 (EZEQUIEL SANCHEZ) Results/Orders Lab Results (STEFFI COHEN MD) My Orders (STEFFI COHEN MD) Vital Signs/I&O (STEFFI COHEN MD) Vital Signs/I&O Capillary Refill : (EZEQUIEL SANCHEZ) Blood Pressure Mean: 79 Progress Note #1: Progress Note UA is clear today. Prior visit note, labs and imaging reviewed. There is no evidence of present UTI or ureteral stone. Cause of pain is uncertain but could be multifactorial. Constipation could be a contributing factor. Patient was advised to treat constipation as there was notable stool burden in the right colon on CT. Discharge instructions and return precautions reviewed with patient. Toradol IM reviewed. Patient had mentioned taking up to 6 tablets of Tylenol 625 mg per dosing. Calculated daily dose did no exceed toxic levels. This was addressed in her written discharge instructions. Patient was also called by MS4 to remind her verbally of Tylenol dosing limits. She did not answer but message was left. Progress Note #2: Progress Note 03/09/22 07:15 - Chart was reviewed and it was noted patient was seen in ED again 03/07/22. I called patient to check on her but did not receive and answer. 03/09/22 10:47 -I was able to contact patient by phone. She is doing fairly well but was still experiencing right-sided abdominal pain. She had stopped taking Tylenol for 2 days and is now only taking appropriate doses of Tylenol. Pain is persisted but she has not had any worsening symptoms. We discussed further work-up to consider including gallbladder ultrasound. I also advised that she have her liver function checked within the next week. I suggested that if anyone repeat CT imaging on her that this be performed with contrast and with delayed phase to ensure that none of the stones in the pelvis are actually ureteral stones instead of phleboliths and to ensure that any inflammatory processes be visualized during CT. We discussed the potential for gallbladder disease including cholelithiasis and biliary dyskinesia. I suggested that she pursue gallbladder ultrasound on an outpatient basis. We also discussed the potential for mesenteric adenitis to be the source of her pain. Patient was appreciative of the phone call and expressed understanding. She took notes of our conversation. (STEFFI COHEN MD) Departure Impression Primary Impression: Right-sided back pain Qualified Codes: M54.50 - Low back pain, unspecified Additional Impression: Right sided abdominal pain Disposition: 01 HOME, SELF-CARE Condition: Improved Departure-Patient Inst. Decision time for Depature: 16:31 (STEFFI COHEN MD) Referrals: NO,LOCAL PHYSICIAN (PCP/Family) Primary Care Physician Patient Instructions: Abdominal Pain, Adult ED, Kidney Stone Diet, Kidney Stone, Adult ED, Low Back Pain ED Add. Discharge Instructions: The exact causes of your back pain and abdominal pain are uncertain based on your work-up in the emergency room. You may have more than one contributing factor simultaneously. Possible contributing factors could include constipation, musculoskeletal pain, recently passed kidney stone, bowel discomfort due to viral illness, etc. You may continue taking Tylenol (acetaminophen) up to 1000 mg every 6 hours as needed and/or ibuprofen up to 600 mg every 6 hours as needed. Your urine specimen was clear of infection in the ER today. This would indicate the antibiotic is working. You should complete the entire course of antibiotics to ensure no rebound infection occurs. Since constipation is a possible contributing factor, you may try a gentle laxative such as MiraLAX (or generic polyethylene glycol) and a clear liquid diet for the remainder of today. You should be able to safely take a couple doses of MiraLAX this evening. If passing a significant bowel movement resolves your pain, then constipation was likely the major contributing factor. Return to the ER if you have worsening symptoms despite following these instructions. Please follow-up with your primary care provider soon as possible. Call tomorrow morning to arrange a follow-up appointment time. You may additionally arrange for follow-up with a urologist at your discretion or your primary care provider's discretion. All discharge instructions reviewed with patient and/or family. Voiced understanding. Student Attestation: This patient was interviewed and examined by me personally along with Taylor Sanchez, MS4. I have reviewed her documentation and agree with her history, physical and assessment except where otherwise noted. Exam: Gen: alert, oriented, normally developed, in no acute distress HEENT: grossly normal Heart: RRR, no murmur Lungs: CTAB, normal effort Back: Right CVA TTP, no rash Abd: soft, non-distended, TTP throughout the right abdomen Ext: Normal to inspection, no edema Neuro/Psych: No obvious focal deficits, mood and affect appropriate (STEFFI COHEN MD) Copy Copies To 1: JAMES CARRERO MD Copies To 2: [facility]/EZEQUIEL NIEVES Mar 06, 2022 14:11 STEFFI COHEN MD Mar 06, 2022 16:35
[2022-03-06 14:47] LABS: BILIRUBIN,URINE NEGATIVE (NEGATIVE); CLARITY,URINE CLEAR; COLOR,URINE YELLOW; GLUCOSE, URINE (UA) NEGATIVE (NEGATIVE); KETONES,URINE NEGATIVE (NEGATIVE); LEUKOCYTE ESTERASE ,URINE NEGATIVE (NEGATIVE); NITRITE,URINE NEGATIVE (NEGATIVE); PROTEIN,URINE NEGATIVE (NEGATIVE)
[2022-03-06 15:07] LABS: BACTERIA,URINE NEGATIVE /HPF; WBC,URINE 0-2 /HPF
[2022-03-06 15:43] LABS: AMPHETAMINE SCREEN, URINE NEGATIVE (NEGATIVE); BARBITURATE SCREEN URINE NEGATIVE (NEGATIVE); BENZODIAZEPINES SCREEN URINE POSITIVE (NEGATIVE); CANNABINOID SCREEN, URINE NEGATIVE (NEGATIVE); COCAINE SCREEN URINE NEGATIVE (NEGATIVE); METHADONE STAT NEGATIVE (NEGATIVE); OPIATE SCREEN URINE NEGATIVE (NEGATIVE); OXYCODONE STAT NEGATIVE (NEGATIVE); PROPOXYPHENE STAT NEGATIVE (NEGATIVE); TRICYCLIC ANTIDEPRESSANTS SCRE NEGATIVE (NEGATIVE)
[2022-03-06] MEDS ORDERED: KETOROLAC 60 MG/2 ML VIAL IM ONE (16:30)
[2022-03-07] MEDS ORDERED: OXYC1TAB11 PO (12:48)
== END 2022-03-06 17:05 | disposition home or self-care (01) ==
LOC: EDUNIT# 13:36 → ER FS 13:38
DX: M54.9 Dorsalgia, unspecified (principal); R10.31 Right lower quadrant pain; Z28.310 Unvaccinated for COVID-19
CPT/HCPCS: 80306; 81000; 99284

== ENCOUNTER 2022-03-07 12:36 | Emergency (ER) | payer MEDICAID ==
[~2022-03-07] VITALS: Ht 170.2 cm; Wt 69.9 kg
--- NOTE | 2022-03-07 12:39 | ED General ---
General Stated Complaint: RT FLANK PAIN Source of Information: Patient History of Present Illness Date Seen by Provider: Mar 07, 2022 Time Seen by Provider: 12:39 Initial Comments 26-year-old female presenting with complaints of continued right flank pain. She was seen yesterday in the emergency department for the same complaint and on 03 March. She was showing clear urine yesterday without signs of infection. She did have a CT scan showing kidney stones on the will repeat the Toradol injection here to try and help with pain and write for a few oxycodone with acetaminophen for severe pain off needed at home. She denies any fever, chills, vomiting, diarrhea, painful urination. She has had some nausea. Allergies and Home Medications Allergies Coded Allergies: No Known Drug Allergies (Unverified , 10/14/20) Patient Home Medication List Home Medication List Reviewed: Yes Oxycodone HCl/Acetaminophen (Oxycodone-Acetaminophen 5-325) 5 Mg-325 Mg Tablet, 1 EACH PO Q4H PRN for PAIN-SEVERE (8-10) Prescribed by: OSEI COTA on 03/07/22 1249 Sulfamethoxazole/Trimethoprim (Sulfamethoxazole-Tmp Ss Tablet) 400 Mg-80 Mg Tablet, 1 EACH PO Q12H Prescribed by: Claude Hendricks on 03/03/22 1940 Discontinued Medications Ciprofloxacin HCl (Ciprofloxacin HCl) 500 Mg Tablet, 500 MG PO BID Prescribed by: OSEI COTA on 02/26/21 180 Hydrocodone/Acetaminophen (Hydrocodone-Acetamin 5-325 mg) 1 Each Tablet, 1 TAB PO Q8H PRN for PAIN-MODERATE (5-7) Prescribed by: HALEY COOPER on 12/10/20 110 Hydrocodone/Acetaminophen (Hydrocodone-Acetamin 7.5-325) 1 Each Tablet, 1 EACH PO Q6H PRN for PAIN-SEVERE (8-10) Prescribed by: OSEI COTA on 02/26/21 1745 Lidocaine HCl (Lidocaine HCl Viscous) 15 Ml Solution, 15 ML MM Q8H Prescribed by: HALEY COOPER on 12/10/20 110 Ondansetron (Ondansetron Odt) 4 Mg Tab.rapdis, 4 MG PO Q6H PRN for NAUSEA/VOMI TING Prescribed by: OSEI COTA on 11/20/202116 Ondansetron (Ondansetron Odt) 4 Mg Tab.rapdis, 4 MG PO Q6H PRN for NAUSEA/VOMITING Prescribed by: OSEI COTA on 02/26/21 174 Oxycodone HCl/Acetaminophen (Oxycodone-Acetaminophen 5-325) 1 Each Tablet, 1 EACH PO Q4H PRN for PAIN-SEVERE (8-10) Prescribed by: OSEI COTA on 11/20/202117 Tamsulosin HCl (Flomax) 0.4 Mg Cap, 0.4 MG PO DAILY Prescribed by: OSEI COTA on 10/14/202108 Review of Systems Review of Systems Constitutional: No chills, No fever EENTM: no symptoms reported Respiratory: no symptoms reported Cardiovascular: no symptoms reported Gastrointestinal: nausea; No vomiting Genitourinary: No dysuria; pain (right flank pain) Musculoskeletal: no symptoms reported Skin: no symptoms reported Psychiatric/Neurological: No Symptoms Reported Past Vzdgwva-Ugvhmm-Urdppe Hx Immunizations Up To Date First/Initial COVID19 Vaccinat: Not currently vaccinated Seasonal Allergies Seasonal Allergies: No Past Medical History Surgery/Hospitalization HX: Anxiety; Depression; Kidney Stones; Surgeries: Yes (ureteral stent) Respiratory: No Cardiac: No Neurological: No Reproductive Disorders: No Genitourinary: Yes Kidney Stones Gastrointestinal: No Musculoskeletal: No Endocrine: No HEENT: No Cancer: No Psychosocial: Yes Anxiety Integumentary: No Blood Disorders: No Physical Exam Vital Signs Capillary Refill : Height, Weight, BMI Height: '" Weight: lbs. oz. kg; 21.00 BMI Method: General Appearance: WD/WN, Mild Distress HEENT: PERRL/EOMI Back: CVA Tenderness (R); No Vertebral Tenderness; Other (pain to right flank with palpation) Neurologic/Psychiatric: Alert, Oriented x3, roll form operator II-XII Norm as Tested Skin: Normal Color, Warm/Dry Progress/Results/Core Measures Suspected Sepsis SIRS Temperature: Pulse: Respiratory Rate: Blood Pressure / Mean: Results/Orders My Orders Orders - OSEI COTA MD Ketorolac Injection (Toradol Injection) (03/07/22 12:46) Vital Signs/I&O Capillary Refill : Progress Note : Progress Note Counseled on limits of Tylenol less than 3000 to 4000 mg in a 24-hour period. Also counseled that she could continue to take ibuprofen with the Percocet. If things are not improving she should follow-up with urology.Since she felt this was same pain as last 5 days and had testing previously will defer repeat testing today. Try to treat pain with Toradol here and prescribe Percocet for severe pain at home. I did review her record in the [employer] program and she has had Buprenorphine/Naloxone prescribed from Jun to December but no current prescription for controlled substances since December 2021. Departure Impression Primary Impression: Right-sided back pain Qualified Codes: M54.50 - Low back pain, unspecified Additional Impressions: Kidney stone on right side Right flank pain Disposition: HOME, SELF-CARE Condition: Stable Departure-Patient Inst. Decision time for Depature: 12:47 Referrals: NO,LOCAL PHYSICIAN (PCP) Primary Care Physician JAMES CARRERO MD Patient Instructions: Flank Pain ED, Kidney Stone Diet, Kidney Stone, Adult ED Add. Discharge Instructions: Stay well hydrated and drink plenty of water and electrolyte drinks. Take Percocet for severe pain and may continue with Ibuprofen as well. Limit your Tylenol (Acetaminophen) intake to less that 3000 to 4000 mg in a 24 hour period. Follow up with Urology if not improving or having worsening symptoms. Check with your primary care provider for continued concerns/pain management. Scripts Oxycodone HCl/Acetaminophen (Oxycodone-Acetaminophen 5-325) 5 Mg-325 Mg Tablet 1 EACH PO Q4H PRN for PAIN-SEVERE (8-10) MDD 6 for 4 Days, #24 TAB 0 Refills Prov: OSEI COTA MD 03/07/22 OSEI COTA MD Mar 07, 2022 12:39
[2022-03-07] MEDS ORDERED: KETOROLAC 60 MG/2 ML VIAL IM STA (12:46)
[2022-03-07] MEDS ORDERED: OXYC1TAB11 PO (12:48)
[2022-03-07 14:50] VITALS: BP 146/87
== END 2022-03-07 13:04 | disposition home or self-care (01) ==
LOC: EDUNIT# 12:36 → ER FS 12:37
DX: N20.0 Calculus of kidney (principal); Z96.0 Presence of urogenital implants; Z28.310 Unvaccinated for COVID-19
CPT/HCPCS: 96372; 99283

== ENCOUNTER 2023-01-21 17:47 | Emergency (ER) | payer SELFPAY ==
[~2023-01-21] VITALS: Ht 170 cm; Wt 66.0 kg
[~2023-01-21 17:47] MED LIST changes: +LIDO15SO3 MM; -LIDO20SO23 MM
--- NOTE | 2023-01-21 17:58 | ED General ---
General Chief Complaint: - Reproductive Stated Complaint: NAUSEA,R LOWER BACK PAIN FOR A WEEK Source of Information: Patient, Old Records History of Present Illness Date Seen by Provider: Jan 21, 2023 Time Seen by Provider: 17:50 Initial Comments 27-year-old female presenting with complaints of increased right lower back pain today. She has had pain in this area for over a week now. She thought that it was a kidney stone as she has history of frequent kidney stones. She has been managing it with ibuprofen and Tylenol at home. Today she felt the pain was more severe and was getting to the point that she was getting nauseated with the pain. She could not get in with her regular provider as she was working throughout the day. She presented for evaluation tonight and to try and get additional pain control. She has not seen a urologist since Dr. Quintero who has retired in April 2022. She denies having fever, chills, vomiting, pain with urination, blood in her urine, blood in her stools, diarrhea, constipation. Timing/Duration: 1 Week Severity: Severe Associated Systoms: No Chest Pain, No Cough, No Diaphoresis, No Fever/Chills, No Headaches, No Loss of Appetite, No Malaise; Nausea/Vomiting (Nausea today with the pain but no vomiting); No Rash, No Seizure, No Shortness of Air, No Syncope, No Weakness Allergies and Home Medications Allergies Coded Allergies: No Known Drug Allergies (Unverified , 10/14/20) Patient Home Medication List Home Medication List Reviewed: Yes Ondansetron (Ondansetron Odt) 4 Mg Tab.rapdis, 4 MG PO Q6H PRN for NAUSEA/VOMITING Prescribed by: OSEI COTA on 01/21/231916 Oxycodone HCl/Acetaminophen (Oxycodone-Acetaminophen 5-325) 5 Mg-325 Mg Tablet, 1 EACH PO Q4H PRN for PAIN-SEVERE (8-10) Prescribed by: OSEI COTA on 03/07/22 1249 Oxycodone HCl/Acetaminophen (Oxycodone-Acetaminophen 5-325) 5 Mg-325 Mg Tablet, 1 EACH PO Q4H PRN for PAIN SEVERE Prescribed by: OSEI COTA on 01/21/231917 Sulfamethoxazole/Trimethoprim (Sulfamethoxazole-Tmp Ss Tablet) 400 Mg-80 Mg Tablet, 1 EACH PO Q12H Prescribed by: Claude Hendricks,Medical Student on 03/03/221939 Tamsulosin HCl (Flomax) 0.4 Mg Cap, 0.4 MG PO DAILY Prescribed by: OSEI COTA on 01/21/231916 Review of Systems Review of Systems Constitutional: No chills, No fever EENTM: no symptoms reported Respiratory: no symptoms reported Cardiovascular: no symptoms reported Gastrointestinal: see HPI Genitourinary: see HPI Musculoskeletal: no symptoms reported Skin: no symptoms reported Psychiatric/Neurological: No Symptoms Reported Past Qhijumj-Oqbtoz-Wxzoya Hx Immunizations Up To Date First/Initial COVID19 Vaccinat: Not currently vaccinated Second COVID19 Vaccination Agustín: Not currently vaccinated Third COVID19 Vaccination Date: Not currently vaccinated Seasonal Allergies Seasonal Allergies: No Past Medical History Surgery/Hospitalization HX: Anxiety; Depression; Kidney Stones; Surgeries: Yes (ureteral stent) Respiratory: No Cardiac: No Neurological: No Reproductive Disorders: No Genitourinary: Yes Kidney Stones Gastrointestinal: No Musculoskeletal: No Endocrine: No HEENT: No Cancer: No Psychosocial: Yes Anxiety Integumentary: No Blood Disorders: No Physical Exam Vital Signs Vital Signs - First Documented 01/21/23 17:52 Temp 36.8 Pulse 92 Resp 16 B/P (MAP) 115/82 (93) Pulse Ox 100 O2 Delivery Room Air Capillary Refill : Height, Weight, BMI Height: '" Weight: lbs. oz. 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 Norm as Tested Skin: Normal Color, Warm/Dry Progress/Results/Core Measures Suspected Sepsis SIRS Temperature: Pulse: Respiratory Rate: Laboratory Tests 01/21/23 18:03: White Blood Count 11.3H Blood Pressure / Mean: Laboratory Tests 01/21/23 18:03: Creatinine 0.56L, Platelet Count 339, Total Bilirubin 0.4 Results/Orders Lab Results Laboratory Tests Test 01/21/23 17:53 01/21/23 18:03 Range/Units Urine Color YELLOW Urine Clarity CLEAR Urine pH 6.0 5-9 Urine Specific [place] >=1.030 1.016-1.022 Urine Protein TRACE H NEGATIVE Urine Glucose (UA) NEGATIVE NEGATIVE Urine Ketones NEGATIVE NEGATIVE Urine Nitrite NEGATIVE NEGATIVE Urine Bilirubin NEGATIVE NEGATIVE Urine Urobilinogen 0.2 < = 1.0 MG/DL Urine Leukocyte Esterase 1+ H NEGATIVE Urine RBC (Auto) TRACE-I H NEGATIVE Urine RBC RARE /HPF Urine WBC 2-5 /HPF Urine Squamous Epithelial Cells >50 H /HPF Urine Crystals NONE /LPF Urine Bacteria FEW H /HPF Urine Casts NONE /LPF Urine Mucus NEGATIVE /LPF Urine Culture Indicated NO Urine Opiates Screen NEGATIVE NEGATIVE Urine Oxycodone Screen NEGATIVE NEGATIVE Urine Methadone Screen NEGATIVE NEGATIVE Urine Propoxyphene Screen NEGATIVE NEGATIVE Urine Barbiturates Screen NEGATIVE NEGATIVE Ur Tricyclic Antidepressants Screen NEGATIVE NEGATIVE Urine Phencyclidine Screen NEGATIVE NEGATIVE Urine Amphetamines Screen NEGATIVE NEGATIVE Urine Methamphetamines Screen NEGATIVE NEGATIVE Urine Benzodiazepines Screen NEGATIVE NEGATIVE Urine Cocaine Screen NEGATIVE NEGATIVE Urine Cannabinoids Screen NEGATIVE NEGATIVE White Blood Count 11.3 H 4.3-11.0 10^3/uL Red Blood Count 4.66 3.80-5.11 10^6/uL Hemoglobin 13.1 11.5-16.0 g/dL Hematocrit 38 35-52 % Mean Corpuscular Volume 82 80-99 fL Mean Corpuscular Hemoglobin 28 25-34 pg Mean Corpuscular Hemoglobin Concent 34 32-36 g/dL Red Cell Distribution Width 12.4 10.0-14.5 % Platelet Count 339 130-400 10^3/uL Mean Platelet Volume 10.0 9.0-12.2 fL Immature Granulocyte % (Auto) 0 % Neutrophils (%) (Auto) 66 42-75 % Lymphocytes (%) (Auto) 26 12-44 % Monocytes (%) (Auto) 7 0-12 % Eosinophils (%) (Auto) 0 0-10 % Basophils (%) (Auto) 1 0-10 % Neutrophils # (Auto) 7.5 1.8-7.8 10^3/uL Lymphocytes # (Auto) 3.0 1.0-4.0 10^3/uL Monocytes # (Auto) 0.8 0.0-1.0 10^3/uL Eosinophils # (Auto) 0.0 0.0-0.3 10^3/uL Basophils # (Auto) 0.1 0.0-0.1 10^3/uL Immature Granulocyte # (Auto) 0.0 0.0-0.1 10^3/uL Sodium Level 138 135-145 MMOL/L Potassium Level 3.9 3.6-5.0 MMOL/L Chloride Level 101 98-107 MMOL/L Carbon Dioxide Level 24 21-32 MMOL/L Anion Gap 13 5-14 MMOL/L Blood Urea Nitrogen 8 7-18 MG/DL Creatinine 0.56 L 0.60-1.30 MG/DL Estimat Glomerular Filtration Rate 128 BUN/Creatinine Ratio 14 Glucose Level 95 70-105 MG/DL Calcium Level 10.0 8.5-10.1 MG/DL Corrected Calcium 8.5-10.1 MG/DL Total Bilirubin 0.4 0.1-1.0 MG/DL Aspartate Amino Transf (AST/SGOT) 10 5-34 U/L Alanine Aminotransferase (ALT/SGPT) 7 0-55 U/L Alkaline Phosphatase 69 40-136 U/L Total Protein 7.7 6.4-8.2 GM/DL Albumin 5.0 H 3.2-4.5 GM/DL Lipase 37 8-78 U/L My Orders Orders - OSEI COTA MD Comprehensive Metabolic Panel (01/21/23 17:49) Lipase (01/21/23 17:49) Ua Culture If Indicated (01/21/23 17:49) Ed Iv/Invasive Line Start (01/21/23 17:49) Cbc With Automated Diff (01/21/23 17:49) Ct Abdomen/Pelvis Wo (01/21/23 17:49) Urine Bedside (01/21/23 17:49) Drug Screen Stat (Urine) (01/21/23 17:49) Ns Iv 1000 Ml (Ns Iv 1000 Ml) (01/21/23 17:59) Ketorolac Injection (Ketorolac Injection (01/21/23 17:59) Ondansetron Injection (Ondansetron Inj (01/21/23 17:59) Tamsulosin Capsule (Flomax Capsule) (01/21/23 19:18) Rx-Oxycodone/Apap 5-325 Mg (Rx-Percocet (01/21/23 19:18) Rx-Ondansetron Po (Rx-Zofran Po) (01/21/23 19:18) Strain Urine (01/21/23 19:19) Vital Signs/I&O 01/21/23 17:52 Temp 36.8 Pulse 92 Resp 16 B/P (MAP) 115/82 (93) Pulse Ox 100 O2 Delivery Room Air Capillary Refill : Progress Note #1: Progress Note Differential diagnosis includes renal colic, pyelonephritis, cystitis, colitis, diverticulitis, musculoskeletal back pain. Obtain urinalysis and bedside urine test. Urine drug screen to look for evidence of illicit substances that she might require opiates for pain control if this is a kidney stone. Establish peripheral IV access and send labs for complete blood count, comprehensive metabolic profile, lipase. Administer normal saline 1 L IV fluid bolus for hydration, Toradol 15 mg IV for pain. Obtain CT scan of the abdomen pelvis without IV contrast to look for possible kidney stone or source of her right low back and flank pain. Progress Note #2: Time: 18:27 Progress Note Complete blood count shows white blood cell of 11.3. She has a normal hemoglobin of 13.1. Urine drug screen was negative. Urinalysis was concentrated with greater than 1.030 specific gravity. She had trace proteinuria with 1+ leukocyte esterase but had greater than 50 epithelial cells for contaminated specimen. There were few bacteria present. Progress Note #3: Progress Note CT scan of the abdomen and pelvis without IV contrast shows kidney stones in the right kidney but no definite ureteral calculus. Counseled patient on findings and results. Discharged on Percocet 5/325 1 every 4 hours as needed severe pain and Zofran 4 mg every 6 hours ODT as needed for nausea vomiting. Take-home packs of both of these medicines were sent with the patient since the pharmacies were closed. Also given a first dose of Flomax here and a prescription to the pharmacy to continue for another week. Given phone number for Dr. Vieyra with urology out of [place]. Advised to strain her urine and watch for stone passing. Since there were very small stones in the right kidney and kidney that she has a small stone that is not causing obstruction but was still causing pain. Diagnostic Imaging Diagonstic Imaging: CT Plain Films/CT/US/NM/MRI: abdomen, pelvis Comments [facility] [place], [place] NAME: GEOFFREY SALMON [facility] REC#: [id number] PT STATUS: REG ER : 1995 PHYSICIAN: OSEI COTA MD ADMIT DATE: 01/21/23/ER FS Draft Date of Exam:01/21/23 CT ABDOMEN/PELVIS WO PROCEDURE: CT abdomen and pelvis without contrast. TECHNIQUE: Multiple contiguous axial images were obtained through the abdomen and pelvis without the use of intravenous contrast. Auto Exposure Controls were utilized during the CT exam to meet ALARA standards for radiation dose reduction. INDICATION: Lower back pain. History of kidney stones. COMPARISON: 03/03/2022 FINDINGS: Included portions of the lung bases are clear. CT ABDOMEN: Normal appendix is identified. Small bowel loops are nondilated. Punctate nonobstructive right renal calculi are also present. Ureters are difficult to follow in a contiguous fashion, but no calculi are seen along the expected course of the ureters. Additionally, there is no hydroureteronephrosis or other evidence of obstruction. No renal masses are seen on this noncontrast exam. The adrenal glands, spleen, pancreas, and liver have an unremarkable noncontrast CT appearance. There is no loculated fluid collection, free fluid or free air within the abdomen. No abnormal mesenteric or retroperitoneal adenopathy is seen. Osseous structures show no acute abnormalities. CT PELVIS: Urinary bladder is unopacified and essentially decompressed. No calculi are seen within the urinary bladder. There may be trace free fluid within the pelvis. There is no loculated fluid collection or free air. No abnormal adenopathy is seen. Osseous structures show no acute abnormalities. IMPRESSION: 1. Multiple punctate nonobstructive right renal calculi. 2. No ureteral calculi, hydroureteronephrosis, or other evidence of obstruction. 3. Trace free fluid within the pelvis; possibly physiologic. Dictated on workstation # [id number] Dict: 01/21/23 1839 Trans: 01/21/23 1846 MAGNOLIA [id number] Interpreted by: TAMY MARTINEZ MD Electronically signed by: Reviewed: Reviewed by Me Departure Impression Primary Impression: Renal colic on right side Additional Impression: Nephrolithiasis Disposition: 01 HOME, SELF-CARE Condition: Stable Departure-Patient Inst. Decision time for Depature: 19:02 Referrals: JN COLLIER DO NO,LOCAL PHYSICIAN (PCP) Primary Care Physician Patient Instructions: Kidney Stone, Adult ED, Flank Pain ED, Kidney Stone Diet, How to Strain Your Urine Add. Discharge Instructions: Follow-up with urology for continued pain and symptoms. Dr. Vieyra is with the [facility] out of [place] and his office phone number is [phone]. He does come to see patients in [place] occasionally as well. Follow-up with Dr. Collier for continued concerns as well. Stay well-hydrated and drink plenty of water and electrolyte drinks. Strain your urine to see when the stone might pass. All discharge instructions reviewed with patient and/or family. Voiced understanding. Scripts Ondansetron (Ondansetron Odt) 4 Mg Tab.rapdis 4 MG PO Q6H PRN for NAUSEA/VOMITING for 5 Days, #20 TAB 0 Refills Prov: OSEI COTA MD 01/21/23 Tamsulosin HCl (Flomax) 0.4 Mg Cap 0.4 MG PO DAILY for Renal Colic for 7 Days, #7 CAP 0 Refills Prov: OSEI COTA MD 01/21/23 Oxycodone HCl/Acetaminophen (Oxycodone-Acetaminophen 5-325) 5 Mg-325 Mg Tablet 1 EACH PO Q4H PRN for PAIN SEVERE MDD 6 for 3 Days, #18 TAB 0 Refills Prov: OSEI COTA MD 01/21/23 OSEI COTA MD Jan 21, 2023 17:58
[2023-01-21] MEDS ORDERED: ONDANSETRON INJECTION 4 MG/2 ML (SDV) IVP STA (17:59)
[2023-01-21] MEDS ORDERED: NS IV 1000 ML 1,000 ML IV STA (17:59)
[2023-01-21] MEDS ORDERED: KETOROLAC INJ 15 MG/ML VIAL IVP STA (17:59)
[2023-01-21 18:06] LABS: BASOPHILS # (AUTO) 0.1 10^3/uL (0.0-0.1); BASOPHILS % (AUTO) 1 % (0-10); EOSINOPHILS % (AUTO) 0 % (0-10); HEMATOCRIT 38 % (35-52); HEMOGLOBIN 13.1 g/dL (11.5-16.0); LYMPHOCYTES % (AUTO) 26 % (12-44); MEAN CORPUSCULAR HEMOGLOBIN 28 pg (25-34); MEAN CORPUSCULAR HGB CONC 34 g/dL (32-36); MEAN CORPUSCULAR VOLUME 82 fL (80-99); MONOCYTES # (AUTO) 0.8 10^3/uL (0.0-1.0); MONOCYTES % (AUTO) 7 % (0-12); NEUTROPHILS # (AUTO) 7.5 10^3/uL (1.8-7.8); NEUTROPHILS % (AUTO) 66 % (42-75); PLATELET COUNT 339 10^3/uL (130-400); WHITE BLOOD COUNT 11.3 10^3/uL (4.3-11.0)
[2023-01-21 18:09] LABS: BILIRUBIN,URINE NEGATIVE (NEGATIVE); CLARITY,URINE CLEAR; COLOR,URINE YELLOW; GLUCOSE, URINE (UA) NEGATIVE (NEGATIVE); KETONES,URINE NEGATIVE (NEGATIVE); LEUKOCYTE ESTERASE ,URINE 1+ (NEGATIVE); NITRITE,URINE NEGATIVE (NEGATIVE); PROTEIN,URINE TRACE (NEGATIVE)
[2023-01-21 18:20] LABS: BACTERIA,URINE FEW /HPF; RBC,URINE RARE /HPF
[2023-01-21 18:21] LABS: SQUAMOUS EPITHELIAL CELL,UR >50 /HPF
[2023-01-21 18:24] LABS: AMPHETAMINE SCREEN, URINE NEGATIVE (NEGATIVE); BARBITURATE SCREEN URINE NEGATIVE (NEGATIVE); BENZODIAZEPINES SCREEN URINE NEGATIVE (NEGATIVE); CANNABINOID SCREEN, URINE NEGATIVE (NEGATIVE); COCAINE SCREEN URINE NEGATIVE (NEGATIVE); METHADONE STAT NEGATIVE (NEGATIVE); OPIATE SCREEN URINE NEGATIVE (NEGATIVE); OXYCODONE STAT NEGATIVE (NEGATIVE); TRICYCLIC ANTIDEPRESSANTS SCRE NEGATIVE (NEGATIVE)
[2023-01-21 18:25] LABS: PROPOXYPHENE STAT NEGATIVE (NEGATIVE)
[2023-01-21 18:41] LABS: ALANINE AMINOTRANSFERASE 7 U/L (0-55); ALKALINE PHOSPHATASE 69 U/L (40-136); BILIRUBIN,TOTAL 0.4 MG/DL (0.1-1.0); BUN/CREATININE RATIO 14; CARBON DIOXIDE 24 MMOL/L (21-32); CHLORIDE 101 MMOL/L (98-107); CREATININE SERUM 0.56 MG/DL (0.60-1.30); GFR ESTIMATED 128; GLUCOSE 95 MG/DL (70-105); POTASSIUM 3.9 MMOL/L (3.6-5.0); SODIUM 138 MMOL/L (135-145); TOTAL PROTEIN 7.7 GM/DL (6.4-8.2)
[2023-01-21 18:42] LABS: LIPASE 37 U/L (8-78)
--- NOTE | 2023-01-21 18:46 | Diagnostic Imaging Report ---
PROCEDURE: CT abdomen and pelvis without contrast. TECHNIQUE: Multiple contiguous axial images were obtained through the abdomen and pelvis without the use of intravenous contrast. Auto Exposure Controls were utilized during the CT exam to meet ALARA standards for radiation dose reduction. INDICATION: Lower back pain. History of kidney stones. COMPARISON: 03/03/2022 FINDINGS: Included portions of the lung bases are clear. CT ABDOMEN: Normal appendix is identified. Small bowel loops are nondilated. Punctate nonobstructive right renal calculi are also present. Ureters are difficult to follow in a contiguous fashion, but no calculi are seen along the expected course of the ureters. Additionally, there is no hydroureteronephrosis or other evidence of obstruction. No renal masses are seen on this noncontrast exam. The adrenal glands, spleen, pancreas, and liver have an unremarkable noncontrast CT appearance. There is no loculated fluid collection, free fluid or free air within the abdomen. No abnormal mesenteric or retroperitoneal adenopathy is seen. Osseous structures show no acute abnormalities. CT PELVIS: Urinary bladder is unopacified and essentially decompressed. No calculi are seen within the urinary bladder. There may be trace free fluid within the pelvis. There is no loculated fluid collection or free air. No abnormal adenopathy is seen. Osseous structures show no acute abnormalities. IMPRESSION: 1. Multiple punctate nonobstructive right renal calculi. 2. No ureteral calculi, hydroureteronephrosis, or other evidence of obstruction. 3. Trace free fluid within the pelvis; possibly physiologic. Dictated by: Dictated on workstation # [id number]
[2023-01-21] MEDS ORDERED: ONDA4TAB11 PO (19:17)
[2023-01-21] MEDS ORDERED: TMSL.4C PO (19:17)
[2023-01-21] MEDS ORDERED: OXYC1TAB11 PO (19:17)
[2023-01-21] MEDS ORDERED: TAMSULOSIN 0.4 MG (FLOMAX) CAP PO STA (19:18)
[2023-01-21] MEDS ORDERED: RX-ONDANSETRON 4 MG ODT (ZOFRAN) PPK #4 PO STA (19:18)
[2023-01-21] MEDS ORDERED: RX-OXYCODONE/APAP 5-325 MG #4 TAB PK PO STA (19:18)
[2023-01-21 19:30] VITALS: BP 110/78
== END 2023-01-21 19:30 | disposition home or self-care (01) ==
LOC: EDUNIT# 17:47 → ER FS 17:48
DX: N20.0 Calculus of kidney (principal); Z28.310 Unvaccinated for COVID-19
CPT/HCPCS: 36415; 74176; 80053; 80306; 81000; 83690; 85025